=== PATIENT | female | born 1990 | race Caucasian/White ===

== ENCOUNTER → 2020-07-17 13:46 | Outpatient (CLI) | payer OTHER, SELFPAY ==
[2020-07-17 14:31] LABS: Basophils # 0.1 K/mm3 (0-0.2); Basophils % 1.3 % (0.1-2.0); Eosinophils # 0.4 K/mm3 (0.0-0.4); Eosinophils % 5.2 % (0.1-12.0); Hematocrit 42.1 % (37.0-47.0); Hemoglobin 13.3 g/dL (12.2-16.2); Lymphocytes % 29.6 % (10-50); Mean Corpuscular HGB Conc 31.5 g/dL (31.8-35.4); Mean Corpuscular Volume 101.6 fl (81-99); Mean Platelet Volume 8.9 fl (7.4-10.4); Monocytes # 0.4 K/mm3 (0.1-1.0); Monocytes % 5.2 % (1.7-9.3); Neutrophils % 58.7 % (37.0-80.0); Platelet Count 178 K/mm3 (142-424); Red Blood Count 4.15 M/mm3 (4.20-5.40); Red Cell Distribution Width 13.2 % (11.5-17.5); White Blood Count 6.8 K/mm3 (4.8-10.8)
== END ==
PROVIDERS: PCP Nurse Practitioner; Visit Provider Nurse Practitioner
DX: Z03.818 Encounter for observation for suspected exposure to other biological agents ruled out (principal)
CPT/HCPCS: 36415; 85025; U0003

== ENCOUNTER 2021-05-03 15:20 | Emergency (ER) | payer OTHER, SELFPAY ==
[2021-05-03 16:30] VITALS: BP 133/84; PULSE 89; RESP 19; TEMP 37.1; O2SAT 99; BMI 29.8
--- NOTE | 2021-05-03 17:03 | HMH.EDUTC ---
[facility] Disposition Clinical Impression: Exposure to COVID-19 virus Disposition: Home, Self-Care Condition on Discharge: Good Instructions: DI for COVID-19 (Suspected or Confirmed ), Coronavirus Disease 2019, Preventing the Spread of Coronavirus Discharge Instructions Additional Instructions: *Monitor Temp, Over the counter Motrin or Tylenol as directed/as needed Tylenol every 4 hours and Motrin every 6 hours (as long as your family doctor has told you that you can take it) for fever or pain. and straight to ER if unable to lower temp less than 101.0 after medication given *Sleep elevated *Humidifier/Vaporizer Follow up IMMEDIATELY for new or worsening symptoms or no Noticeable improvement over the next 48-72 hours. 911 for difficulty breathing or swallowing You were tested for today for COVID19 your test result should be back in the next 24-48 hours, you may call to the [facility] to see if your test results are back in the next 48 hours [phone] [facility] hours are 9am-9pm You was given a handout with instructions for Self Quarantine and Self isolation for while you wait on test results and what to do if they are positive If you are positive the Health Dept will be contacting you also Make sure to take your Vitamins Vit. C Vit D and Zinc if you can take them Referrals: Tio Gomez MD [Primary Care Provider] - As needed Forms: Work/School Release Time of Disposition: 17:05 Medical Decision Making - Chris Inquiry Pt receiving controlled substance: No Chris was queried for this patient: No Vital Signs: 05/03/21 16:30 Temperature 98.7 F Temperature Source Oral Pulse Rate [Left Brachial] 89 Respiratory Rate 19 Blood Pressure [Left Arm] 133/84 Blood Pressure Mean [Left Arm] 100 Blood Pressure Source [Left Arm] Automatic Cuff Blood Pressure Position [Left Arm] Sitting 02 Sat by Pulse Oximetry 99 Oxygen Delivery Method Room Air Orders (Tests/Meds): ORDERS Category Date Time Status Covid-19 Nasal PCR ([facility]) Routine Lab 05/03/21 16:39 Ordered [facility] HPI - General Stated complaint: covid test Time Seen by Provider: 05/03/21 17:03 Mode of Arrival: Ambulatory Source of Information: Patient Limitations: No Limitations Description of Symptoms (Recalled from Triage Doc. by RN): COVID TEST D/T EXPOSURE. DENIES SYMPTOMS HEENT Symptoms (Recalled from RN notes): No Resp Symptoms (Recalled from RN notes): No Skin Symptoms (Recalled from RN notes): No MS Symptoms (Recalled from RN notes): No Functional Status (Recalled from RN notes): WNL - History of Present Illness Provider Complaint: Patient state that she was recently exposed to COVID by another coworker States that she is not having any symptoms but her son is and so she came in to get tested - Related Data Home Medications Medication Instructions Recorded Confirmed No Known Home Medications 09/06/19 09/06/19 Allergies Allergy/AdvReac Type Severity Reaction Status Date / Time No Known Allergies Allergy Verified 09/06/19 21:27 - Worker's Comp Is this a Worker's Comp case?: No [facility] History - Hepatitis A Screen Drug use history?: No High risk sexual behaviors?: No History of sexually transmitted infection?: No Currently employed?: No Childcare worker?: No Do you have indoor plumbing?: Yes Do you have electricity?: Yes Attestation statement:: This patient has been screened for Hepatitis A risk factors. I have reviewed the patient's past medical history: Yes Medical History: Denies:: Diabetes Mellitus Type 1, Diabetes Mellitus Type 2, Internal Pacemaker Other Surgeries: No: Pacemaker - Social History Smoking Status: Current every day smoker Tobacco Type: cigarettes # Packs/Day (cigarettes): 1 Alcohol Intake: never Occupational Status: other ROS Obtained: Yes All systems reviewed & no additional complaints, Yes Systems reviewed as appropriate & no additional complaints - Constitutional Constitutional: Reports sys
[2021-05-03 17:06] VITALS: BP 133/84; PULSE 89; RESP 19; TEMP 37.1; O2SAT 99
== END 2021-05-03 17:10 | disposition home or self-care (01) ==
PROVIDERS: Emergency Provider Nurse Practitioner; PCP Family Medicine
DX: Z20.822 Contact with and (suspected) exposure to COVID-19 (principal); F17.210 Nicotine dependence, cigarettes, uncomplicated
CPT/HCPCS: 99202; G0463; U0003

== ENCOUNTER → 2021-12-09 11:48 | Outpatient (CLI) | payer OTHER, SELFPAY ==
--- NOTE | 2021-12-09 11:51 | XR_ITS ---
FINAL REPORT CLINICAL HISTORY: PAIN FINDINGS: 3 weight-bearing views of the right foot were obtained. There is no acute fracture or dislocation. The joint spaces are intact. The soft tissues are unremarkable. IMPRESSION: No acute process. Reviewed, Interpreted and Dictated by Red Garcia MD Transcribed by Salinas Antonio Authenticated by Red Garcia MD on 12/09/2021 12:57:[address] [facility]
== END ==
PROVIDERS: PCP Family Medicine; Visit Provider Podiatrist
DX: M79.671 Pain in right foot (principal); B35.9 Dermatophytosis, unspecified
CPT/HCPCS: 73630; 87070; 87077; 87102; 87205; 87206; 87220

== ENCOUNTER → 2023-02-20 10:36 | Outpatient (CLI) | payer BC, SELFPAY ==
[2023-02-21 08:20] LABS: Progesterone 30.9 ng/mL (.)
== END ==
PROVIDERS: PCP Nurse Practitioner; Visit Provider Obstetrics & Gynecology
DX: Z34.90 Encounter for supervision of normal pregnancy, unspecified, unspecified trimester (principal)
CPT/HCPCS: 36415; 84144; 84702

== ENCOUNTER → 2023-02-23 10:50 | Outpatient (CLI) | payer BC, SELFPAY ==
[2023-02-23 11:30] LABS: Basophils # 0.1 K/mm3 (0-0.2); Basophils % 0.4 % (0.1-2.0); Eosinophils # 0.1 K/mm3 (0.0-0.4); Eosinophils % 0.9 % (0.1-12.0); Hematocrit 42.6 % (37.0-47.0); Hemoglobin 13.9 g/dL (12.2-16.2); Lymphocytes % 17.5 % (10-50); Mean Corpuscular HGB Conc 32.7 g/dL (31.8-35.4); Mean Corpuscular Hemoglobin 32.2 pg (27.0-31.2); Mean Corpuscular Volume 98.4 fl (81-99); Mean Platelet Volume 8.5 fl (7.4-10.4); Monocytes # 0.4 K/mm3 (0.1-1.0); Monocytes % 3.8 % (1.7-9.3); Neutrophils # 8.6 K/mm3 (1.8-7.8); Neutrophils % 77.3 % (37.0-80.0); Platelet Count 301 K/mm3 (142-424); Red Blood Count 4.33 M/mm3 (4.20-5.40); Red Cell Distribution Width 13.5 % (11.5-17.5); White Blood Count 11.2 K/mm3 (4.8-10.8)
[2023-02-24 09:19] LABS: HIV Screen 4th Generation wRfx Non Reactive (Non Reactive)
[2023-02-24 14:22] LABS: Rapid Plasma Reagin Ab Titer Non Reactive (NonRea<1:1); Rubella Antibodies, IgG 6.24 index (Immune >0.99)
[2023-04-01 00:21] LABS: Hepatitis B Surface Antigen Negative; Hepatitis C Antibody Non Reactive
== END ==
PROVIDERS: PCP Family Medicine; Visit Provider Obstetrics & Gynecology
DX: Z34.91 Encounter for supervision of normal pregnancy, unspecified, first trimester (principal); Z3A.16 16 weeks gestation of pregnancy
CPT/HCPCS: 36415; 85025; 86593; 86703; 86762; 86850; 87086; 87340; 87380; G0432

== ENCOUNTER → 2023-03-02 12:25 | Outpatient (CLI) | payer BC, SELFPAY ==
--- NOTE | 2023-03-02 12:51 | US_ITS ---
PROCEDURE: US OB >= 14 WEEKS FETUS CLINICAL INDICATION: for dates COMPARISON: No exams were available for comparison FINDINGS: Single viable intrauterine gestation. Cephalic position. Placenta: Anteriorplacenta grade 1. There is average amount fluid. The cervix appears satisfactory. Closed and measuring 3 cm in length. Complete survey performed and was unremarkable on the submitted images as in PACS. No discrete anomalies identified on survey imaging by technologist. Active fetus. Three-vessel cord with satisfactory umbilical cord insertion. 4- chamber heart noted. Survey of brain & ventricles Unremarkable., cerebellum, Cisterna magna, thalamus, choroid plexus appear normal Face and neck survey unremarkable. Nose and lips visualized, nasion visualized Diaphragm and chest views unremarkable. Abdomen: Stomach noted and satisfactory. Bladder visualized Spine: Survey of the spine satisfactory with no anomalies identified nor imaged. Upper, thoracic, lower spine normal. Both arms and legs noted. Amniotic Fluid: Adequate. Measurements: Average ultrasound age 16weeks 6days. Gestational Age 16weeks 6days Estimated due date by ultrasound age 1108/11/2023. Estimated weight 169g BPD = 17weeks 1day OFD = 16weeks 6days HC = 16weeks 4days AC = 17weeks 1day FL = 16weeks 4days Heart Rate = 149bpm Cerebellum = 17weeks HC/AC is 1.14 CI is 0.8 FL/BPD is 0.6 FL/AC is 0.19 From her last menstrual period she is unknown. . An intrauterine fetus is present with gestational age of 16weeks 6days. heart tones are present with an FHR of 149bpm. IMPRESSION: 1. Estimated due date by Ultrasound is 08/11/2023. 2. Limited anatomical scan appears normal. 3. Fetus in the cephalic presentation with an anterior placenta. Dictated by: Jay Fuller MD 03/05/2023 18:57 Jay Fuller MD in [place] 03/05/2023 18:57
== END ==
PROVIDERS: PCP Family Medicine; Visit Provider Obstetrics & Gynecology
DX: Z3A.16 16 weeks gestation of pregnancy; Z34.92 Encounter for supervision of normal pregnancy, unspecified, second trimester
CPT/HCPCS: 76805

== ENCOUNTER → 2023-03-30 14:43 | Outpatient (CLI) | payer BC, SELFPAY ==
--- NOTE | 2023-03-30 14:43 | US_ITS ---
PROCEDURE: US OB /MATERNAL DETAIL CLINICAL INDICATION: 20 week anatomy scan COMPARISON: No exams were available for comparison FINDINGS: From her established due date she is 20 weeks 6 days. Single viable intrauterine gestation. Breech position. Placenta: Anteriorplacenta grade 1 . There are several small placental lakes. There is average amount fluid. The cervix appears satisfactory. Closed and measuring 4.2 cm in length. Complete survey performed and was unremarkable on the submitted images as in PACS. No discrete anomalies identified on survey imaging by technologist. Active fetus. Three-vessel cord with satisfactory umbilical cord insertion. 4- chamber heart noted. LVOT, RVOT, Survey of brain & ventricles Unremarkable. Cerebellum, thalamus, cisterna magna, choroid plexus appear normal. There is a 6 millimeter choroid plexus cyst. Face and neck survey unremarkable. Lips and nose appeared normal. Profile and nasion appear normal Diaphragm and chest views unremarkable. Abdomen: Both kidneys noted and unremarkable. Stomach noted and satisfactory. Bladder appears normal. Spine: Survey of the spine satisfactory with no anomalies identified nor imaged. upper, thoracic, lower spine appear normal. Both arms and legs noted. Amniotic Fluid: Adequate. Measurements: Average ultrasound age 20weeks 4days. Estimated due date by ultrasound age 1108/13/2023. Estimated weight 361g BPD = 21weeks OFD = 20weeks 3days HC = 19weeks 6days AC = 20weeks 4days FL = 20weeks 6days Growth Percentile= 33% Heart Rate = 139bpm Cerebellum = 20weeks 2days Humerus = 20weeks 5days HC/AC is 1.13 CI is 0.82 FL/BPD is 0.7 FL/AC is 0.22 IMPRESSION: 1. Viable fetus in the breech presentation with an anterior placenta grade 1. 2. There are several small placental lakes. 3. Complete anatomical scan appears normal. 4. There is a 6 millimeter choroid plexus cyst. No other soft markers. Dictated by: Jay Fuller MD 04/01/2023 14:54 Jay Fuller MD in [place] 04/01/2023 14:54
== END ==
PROVIDERS: PCP Family Medicine; Visit Provider Obstetrics & Gynecology
DX: Z34.92 Encounter for supervision of normal pregnancy, unspecified, second trimester (principal); Z3A.20 20 weeks gestation of pregnancy
CPT/HCPCS: 76811

== ENCOUNTER 2023-05-16 08:02 | Outpatient (CLI) | payer BC, SELFPAY ==
[2023-05-16 08:49] LABS: Basophils # 0.1 K/mm3 (0-0.2); Basophils % 0.4 % (0.1-2.0); Eosinophils # 0.2 K/mm3 (0.0-0.4); Eosinophils % 1.5 % (0.1-12.0); Hematocrit 38.3 % (37.0-47.0); Hemoglobin 12.7 g/dL (12.2-16.2); Lymphocytes % 14.6 % (10-50); Mean Corpuscular HGB Conc 33.2 g/dL (31.8-35.4); Mean Corpuscular Hemoglobin 34.1 pg (27.0-31.2); Mean Corpuscular Volume 102.7 fl (81-99); Mean Platelet Volume 9.2 fl (7.4-10.4); Monocytes # 0.6 K/mm3 (0.1-1.0); Monocytes % 4.3 % (1.7-9.3); Neutrophils % 79.2 % (37.0-80.0); Platelet Count 289 K/mm3 (142-424); Red Blood Count 3.73 M/mm3 (4.20-5.40); Red Cell Distribution Width 13.1 % (11.5-17.5); White Blood Count 13.8 K/mm3 (4.8-10.8)
[2023-05-16 09:00] LABS: Glucose,Fasting 85 mg/dl (74-100)
[2023-05-16 10:22] LABS: Glucose 1 Hour 123 mg/dL (74-100)
[2023-05-16 10:40] VITALS: BP 103/64; PULSE 102; RESP 18; O2SAT 99
== END 2023-05-16 10:45 | disposition home or self-care (01) ==
LOC: LAB 08:03
PROVIDERS: PCP Family Medicine; Visit Provider Obstetrics & Gynecology
DX: O26.893 Other specified pregnancy related conditions, third trimester; Z3A.28 28 weeks gestation of pregnancy; Z67.91 Unspecified blood type, Rh negative
CPT/HCPCS: 36415; 82951; 85025; 96372; J2790

== ENCOUNTER 2023-06-06 09:02 | Outpatient (CLI) | payer BC, SELFPAY ==
[2023-06-06 09:13] VITALS: BMI 19.4
[2023-06-06 09:36] LABS: Microscopic, Urine URINE MICROSCOPIC (MICROSCOPIC)
[2023-06-06 09:41] LABS: Appearance,Urine CLEAR (Clear); Bilirubin,Urine Negative (Negative); Blood, Urine Negative (Negative); Color,Urine YELLOW (Yellow); Glucose,Urine (UA) Negative (Negative); Ketones,Urine Negative (Negative); Leukocyte Esterase,Urine Negative (Negative); Nitrate,Urine Negative (Negative); Protein,Urine Negative (Negative); Urobilinogen,Urine 0.2 EU/dl (0.2)
[2023-06-06 09:52] VITALS: RESP 19; TEMP 36.6; O2SAT 100; BMI 19.4
[2023-06-06 09:54] LABS: RBC,Urine Occasional #/hpf (0-3); WBC,Urine Occasional #/hpf (0-3)
[2023-06-06 09:55] LABS: Bacteria,Urine Trace /lpf; Yeast,Urine 1+ /lpf
[2023-06-06 09:56] LABS: Barbiturates Screen,Urine Negative ng/ml (<200)
[2023-06-06 09:57] LABS: Benzodiazepines Screen,Urine Negative ng/ml (<200)
[2023-06-06 09:58] LABS: Amphetamine/Metha Screen,Urine Negative ng/ml (<1000); Methadone Screen,Urine Negative ng/ml (<300)
[2023-06-06 09:59] LABS: Cannabinoid Screen,Urine Negative ng/ml (<50); Cocaine Screen,Urine Negative ng/ml (<300)
[2023-06-06 10:00] LABS: Opiate Screen,Urine Negative ng/ml (<300)
[2023-06-06 10:01] LABS: Phencyclidine Screen,Urine Negative ng/ml (<25)
== END 2023-06-06 10:56 | disposition home or self-care (01) ==
LOC: OBOUT 09:04 → OB 09:05
PROVIDERS: PCP Nurse Practitioner; Visit Provider Obstetrics & Gynecology
DX: O26.893 Other specified pregnancy related conditions, third trimester (principal); Z3A.30 30 weeks gestation of pregnancy
CPT/HCPCS: 80305; 81001

== ENCOUNTER 2023-06-13 08:50 | Outpatient (CLI) | payer BC, SELFPAY ==
[2023-06-13 09:06] VITALS: BP 112/77; PULSE 107; RESP 20; TEMP 36.6; O2SAT 98; BMI 19.9
== END 2023-06-13 09:33 | disposition home or self-care (01) ==
LOC: OBOUT 08:51 → OB 08:53
PROVIDERS: PCP Family Medicine; Visit Provider Obstetrics & Gynecology
DX: O26.893 Other specified pregnancy related conditions, third trimester (principal); Z3A.31 31 weeks gestation of pregnancy
CPT/HCPCS: 59025; G0463

== ENCOUNTER 2023-06-26 12:27 | Outpatient (CLI) | payer BC, SELFPAY ==
[2023-06-26 13:14] VITALS: BP 118/72; PULSE 82; RESP 18; TEMP 36.7; O2SAT 99
== END 2023-06-26 13:35 | disposition home or self-care (01) ==
LOC: OBOUT 12:30 → OB 12:31
PROVIDERS: PCP Family Medicine; Visit Provider Nurse Practitioner Obstetrics & Gynecology
DX: O26.893 Other specified pregnancy related conditions, third trimester (principal); Z3A.33 33 weeks gestation of pregnancy
CPT/HCPCS: G0463

== ENCOUNTER 2023-07-03 17:15 | Outpatient (CLI) | payer BC, SELFPAY ==
[2023-07-03 17:34] VITALS: BMI 19.8
[2023-07-03 17:36] VITALS: BMI 19.8
[2023-07-03 17:40] LABS: Microscopic, Urine URINE MICROSCOPIC (MICROSCOPIC)
[2023-07-03 17:44] LABS: Appearance,Urine CLEAR (Clear); Bilirubin,Urine Negative (Negative); Blood, Urine Negative (Negative); Color,Urine YELLOW (Yellow); Glucose,Urine (UA) Negative (Negative); Ketones,Urine 1+ (Negative); Leukocyte Esterase,Urine Negative (Negative); Nitrate,Urine Negative (Negative); Protein,Urine TRACE (Negative); Specific Gravity, Urine >= 1.030 (1.005-1.030); Urobilinogen,Urine 0.2 EU/dl (0.2)
[2023-07-03 17:59] LABS: Amphetamine/Metha Screen,Urine Negative ng/ml (<1000); Barbiturates Screen,Urine Negative ng/ml (<200)
[2023-07-03 18:00] LABS: Cannabinoid Screen,Urine Negative ng/ml (<50)
[2023-07-03 18:01] LABS: Benzodiazepines Screen,Urine Negative ng/ml (<200); Methadone Screen,Urine Negative ng/ml (<300)
[2023-07-03 18:02] LABS: Cocaine Screen,Urine Negative ng/ml (<300)
[2023-07-03 18:03] LABS: Opiate Screen,Urine Negative ng/ml (<300); Phencyclidine Screen,Urine Negative ng/ml (<25)
[2023-07-03 18:21] LABS: Bacteria,Urine Trace /lpf; RBC,Urine Occasional #/hpf (0-3); WBC,Urine Occasional #/hpf (0-3)
== END 2023-07-03 18:14 | disposition home or self-care (01) ==
LOC: OBOUT 17:16 → OB 17:17
PROVIDERS: PCP Family Medicine; Visit Provider Obstetrics & Gynecology
DX: O26.893 Other specified pregnancy related conditions, third trimester (principal); Z3A.34 34 weeks gestation of pregnancy
CPT/HCPCS: 59025; 80305; 81001; G0463

== ENCOUNTER 2023-07-06 08:29 | Outpatient (CLI) | payer BC, SELFPAY ==
[2023-07-06 08:53] LABS: Microscopic, Urine URINE MICROSCOPIC (MICROSCOPIC)
[2023-07-06 08:56] LABS: Appearance,Urine CLEAR (Clear); Bilirubin,Urine Negative (Negative); Blood, Urine Negative (Negative); Color,Urine YELLOW (Yellow); Glucose,Urine (UA) Negative (Negative); Ketones,Urine Negative (Negative); Leukocyte Esterase,Urine Negative (Negative); Nitrate,Urine Negative (Negative); PH,Urine 6.5 (5.0-8.5); Protein,Urine Negative (Negative); Urobilinogen,Urine 0.2 EU/dl (0.2)
[2023-07-06 09:06] LABS: Barbiturates Screen,Urine Negative ng/ml (<200)
[2023-07-06 09:07] LABS: Cannabinoid Screen,Urine Negative ng/ml (<50)
[2023-07-06 09:08] VITALS: BP 111/84; PULSE 95; RESP 16; TEMP 36.9; O2SAT 98
[2023-07-06 09:08] LABS: Benzodiazepines Screen,Urine Negative ng/ml (<200); Methadone Screen,Urine Negative ng/ml (<300)
[2023-07-06 09:09] LABS: Cocaine Screen,Urine Negative ng/ml (<300)
[2023-07-06 09:10] LABS: Phencyclidine Screen,Urine Negative ng/ml (<25)
[2023-07-06 09:11] LABS: Opiate Screen,Urine Negative ng/ml (<300)
[2023-07-06 09:15] LABS: Amphetamine/Metha Screen,Urine Negative ng/ml (<1000)
[2023-07-06 12:02] LABS: Fetal Fibronectin (Rapid) Negative (Negative)
== END 2023-07-06 12:43 | disposition home or self-care (01) ==
LOC: OBOUT 08:30 → OB 08:31
PROVIDERS: PCP Family Medicine; Visit Provider Obstetrics & Gynecology
DX: O36.8130 Decreased fetal movements, third trimester, not applicable or unspecified (principal); Z3A.34 34 weeks gestation of pregnancy
CPT/HCPCS: 59025; 80305; 81001; 82731; 96365; G0463

== ENCOUNTER 2023-07-10 17:36 | Outpatient (CLI) | payer BC, SELFPAY ==
[2023-07-10 17:57] VITALS: BMI 20.2
[2023-07-10 17:58] VITALS: BMI 20.2
[2023-07-10 18:02] LABS: Microscopic, Urine URINE MICROSCOPIC (MICROSCOPIC)
[2023-07-10 18:14] LABS: Barbiturates Screen,Urine Negative ng/ml (<200)
[2023-07-10 18:15] LABS: Benzodiazepines Screen,Urine Negative ng/ml (<200)
[2023-07-10 18:16] LABS: Amphetamine/Metha Screen,Urine Negative ng/ml (<1000)
[2023-07-10 18:18] LABS: Methadone Screen,Urine Negative ng/ml (<300); Opiate Screen,Urine Negative ng/ml (<300)
[2023-07-10 18:19] LABS: Phencyclidine Screen,Urine Negative ng/ml (<25)
[2023-07-10 18:21] LABS: Cannabinoid Screen,Urine Negative ng/ml (<50)
[2023-07-10 18:22] LABS: Appearance,Urine CLEAR (Clear); Bilirubin,Urine Negative (Negative); Blood, Urine Negative (Negative); Cocaine Screen,Urine Negative ng/ml (<300); Color,Urine YELLOW (Yellow); Glucose,Urine (UA) Negative (Negative); Ketones,Urine TRACE (Negative); Leukocyte Esterase,Urine Negative (Negative); Nitrate,Urine Negative (Negative); Protein,Urine Negative (Negative); Specific Gravity, Urine >= 1.030 (1.005-1.030)
[2023-07-10 18:32] LABS: Squamous Epithelial Cell,Urine Occasional #/hpf (0-5); WBC,Urine Occasional #/hpf (0-3)
== END 2023-07-10 18:55 | disposition home or self-care (01) ==
LOC: OBOUT 17:37 → OB 17:39
PROVIDERS: PCP Family Medicine; Visit Provider Nurse Practitioner Obstetrics & Gynecology
DX: O26.893 Other specified pregnancy related conditions, third trimester (principal); Z3A.35 35 weeks gestation of pregnancy
CPT/HCPCS: 59025; 80305; 81001

== ENCOUNTER 2023-07-14 16:39 | Outpatient (CLI) | payer BC, SELFPAY ==
[2023-07-14 17:30] VITALS: BP 118/76; PULSE 111; RESP 16; TEMP 36.6; O2SAT 99; BMI 20.4
[2023-07-14 17:38] LABS: Microscopic, Urine URINE MICROSCOPIC (MICROSCOPIC)
[2023-07-14 17:53] LABS: Appearance,Urine CLEAR (Clear); Bilirubin,Urine Negative (Negative); Blood, Urine Negative (Negative); Color,Urine YELLOW (Yellow); Glucose,Urine (UA) Negative (Negative); Ketones,Urine Negative (Negative); Leukocyte Esterase,Urine Negative (Negative); Nitrate,Urine Negative (Negative); Protein,Urine TRACE (Negative); Specific Gravity, Urine >= 1.030 (1.005-1.030)
[2023-07-14 18:22] LABS: Bacteria,Urine Trace /lpf
== END 2023-07-14 18:26 | disposition home or self-care (01) ==
LOC: OBOUT 16:40 → OB 16:41
PROVIDERS: PCP Family Medicine; Visit Provider Obstetrics & Gynecology
DX: O47.03 False labor before 37 completed weeks of gestation, third trimester (principal); Z3A.36 36 weeks gestation of pregnancy
CPT/HCPCS: 59025; 81001; G0463

== ENCOUNTER 2023-07-17 09:07 | Outpatient (CLI) | payer BC, SELFPAY ==
[2023-07-17 09:39] VITALS: BP 106/75; PULSE 93; RESP 18; TEMP 36.8
== END 2023-07-17 09:35 | disposition home or self-care (01) ==
LOC: OBOUT 09:09 → OB 09:13
PROVIDERS: PCP Family Medicine; Visit Provider Obstetrics & Gynecology
DX: O47.03 False labor before 37 completed weeks of gestation, third trimester (principal); Z3A.36 36 weeks gestation of pregnancy; R10.2 Pelvic and perineal pain
CPT/HCPCS: 96372

== ENCOUNTER 2023-07-18 08:35 | Outpatient (CLI) | payer BC, SELFPAY ==
[2023-07-18 08:41] VITALS: BMI 20.3
== END 2023-07-18 09:15 | disposition home or self-care (01) ==
LOC: OBOUT 08:36 → OB 08:37
PROVIDERS: PCP Family Medicine; Visit Provider Obstetrics & Gynecology
DX: O26.893 Other specified pregnancy related conditions, third trimester (principal); Z3A.36 36 weeks gestation of pregnancy
CPT/HCPCS: 96372; G0463

== ENCOUNTER 2023-07-23 21:30 | Emergency (ER) | payer BC, SELFPAY ==
--- NOTE | 2023-07-23 21:31 | HMH.EDGENADL ---
Discharge Plan Prescriptions Prescriptions: No Action Classic 28 mg iron- 800 mcg tablet 1 tab PO DAILY Referrals Follow up/Referrals: Es Lazcano MD [Primary Care Provider] - See instructions Discharge ED Provider: Juan Mendosa Adult HPI General Stated complaint: back pain Time Seen by Provider: 07/23/23 21:31 Related Data Home Medications Medication Instructions Recorded Confirmed vits no.126-ferrous fum 1 tab PO DAILY 02/23/23 07/17/23 28 mg iron-folic acid 800 mcg tablet (Classic ) Allergies Allergy/AdvReac Type Severity Reaction Status Date / Time No Known Allergies Allergy Verified 07/17/23 08:20 [facility] Disclaimer: The information contained in this section may have been updated after the patient was seen, as this information can be updated by other users. Medical History History of delivery, currently Nausea and vomiting in Request for sterilization Rh negative status during Tobacco abuse Tobacco use affecting , antepartum Surgical History Hx of section Family History Other No significant family history Social History Smoking Status: Current every day smoker tobacco type: cigarettes packs per day: 1 second hand exposure: No alcohol intake: never substance use type: denies use current occupational status: unemployed Travel in the last 8 weeks: None ROS Obtained: Yes Systems reviewed as appropriate & no additional complaints except as documented As per HPI Physical Exam General General appearance: alert and in no apparent distress Head Head exam: atraumatic and normocephalic Eye Eye exam: Present normal appearance Neck Neck exam: Present normal inspection Chest Chest inspection: Present normal inspection and symmetric chest wall rise Respiratory Respiratory exam: Present normal lung sounds bilaterally; Absent respiratory distress Cardiovascular Cardiovascular exam: Present regular rate and normal rhythm Abdominal Exam Abdominal exam: Present soft Neurological Exam Neurological exam: Present alert and oriented X3 Psychiatric Psychiatric exam: Present normal affect and normal mood Skin Skin exam: Present warm and dry Medical Decision Making Medical Records Medical records reviewed: Yes I reviewed the patient's medical records. Chris Inquiry Pt receiving controlled substance: No Medical Decision Narrative: Patient with history and exam per above presenting for evaluation of Diagnoses considered include ED workup and treatment included: Labs were independently interpreted by me, significant for Imaging was independently visualized and interpreted by me, significant for Symptoms at this time are thought to be most consistent with I discussed my clinical impression with patient and answered all questions. At this time, given reassuring workup and exam, I discussed that I have a low index of suspicion for any acute pathology necessitating inpatient management. Specific return precautions were given, with understanding and agreement. Patient will follow up with primary care provider as needed. I prescribed the following medications upon discharge: Critical Care Critical Care Time Critical Care Time: No
[2023-07-23 21:44] VITALS: BP 0/0; PULSE 0; RESP 0; TEMP -17.7; TEMP 0; O2SAT 0
--- NOTE | 2023-07-23 23:20 | HMH.EDGENADL ---
Discharge Plan Disposition Patient Disposition: Left Without Being Seen Clinical Impressions Clinical Impression: Patient left without being seen Discharge ED Provider: Juan Mendosa Adult HPI General Stated complaint: back pain Time Seen by Provider: 07/23/23 21:31 History of Present Illness HPI narrative: Patient left without being seen. I was therefore unable to assess patient and form a clinical impression. Please note that first provider time was documented solely for the purposes of chart completion. Electronic medical record will not allow me to file a note for the purposes of documenting this encounter in the emergency department without first provider time but again, I did not evaluate the patient. Related Data Home Medications Medication Instructions Recorded Confirmed vits no.126-ferrous fum 1 tab PO DAILY 02/23/23 07/17/23 28 mg iron-folic acid 800 mcg tablet (Classic ) Allergies Allergy/AdvReac Type Severity Reaction Status Date / Time No Known Allergies Allergy Verified 07/17/23 08:20 [facility] Disclaimer: The information contained in this section may have been updated after the patient was seen, as this information can be updated by other users. Medical History History of delivery, currently Nausea and vomiting in Request for sterilization Rh negative status during Tobacco abuse Tobacco use affecting , antepartum Surgical History Hx of section Family History Other No significant family history Social History Smoking Status: Current every day smoker tobacco type: cigarettes packs per day: 1 second hand exposure: No alcohol intake: never substance use type: denies use current occupational status: unemployed Travel in the last 8 weeks: None ROS Obtained: Yes other (Unobtainable) Physical Exam General General appearance: other (Unobtainable) Head Head exam: other (Unobtainable) ENT ENT exam: Present other (Unobtainable) Neck Neck exam: Present other (Unobtainable) Chest Chest inspection: Present other (Unobtainable) Respiratory Respiratory exam: Present other (Unobtainable) Cardiovascular Cardiovascular exam: Present other (Unobtainable) Abdominal Exam Abdominal exam: Present other (Unobtainable) Extremities Exam Extremities exam: Present other (Unobtainable) Back Exam Back exam: Present other (Unobtainable) Neurological Exam Neurological exam: Present other (Unobtainable) Psychiatric Psychiatric exam: Present other (Unobtainable) Medical Decision Making Chris Inquiry Pt receiving controlled substance: No Vital Signs: 07/23/23 21:44 Temperature 0 F L Pulse Rate 0 L Respiratory Rate 0 L Blood Pressure 0/0 L Medical Decision Narrative: Patient left without being seen. I was therefore unable to assess patient and form a clinical impression.Please note that first provider time was documented solely for the purposes of chart completion.Electronic medical record will not allow me to file a note for the purposes of documenting this encounter in the emergency department without first provider time but again I did not see patient. Critical Care Critical Care Time Critical Care Time: No
== END 2023-07-23 21:46 | disposition left against medical advice (07) ==
PROVIDERS: Emergency Provider Emergency Medicine; PCP Family Medicine
DX: M54.9 Dorsalgia, unspecified (principal)
CPT/HCPCS: 99211

== ENCOUNTER 2023-07-23 21:34 | Outpatient (CLI) | payer BC, SELFPAY ==
[2023-07-23 21:42] VITALS: BMI 20.3
[2023-07-23 22:09] VITALS: BP 119/75; PULSE 101; RESP 17; O2SAT 98; BMI 20.3
[2023-07-23 22:25] LABS: Microscopic, Urine URINE MICROSCOPIC (MICROSCOPIC)
[2023-07-23 22:28] LABS: Appearance,Urine SL CLOUDY (Clear); Bilirubin,Urine Negative (Negative); Blood, Urine Negative (Negative); Color,Urine YELLOW (Yellow); Glucose,Urine (UA) 1+ (Negative); Ketones,Urine TRACE (Negative); Leukocyte Esterase,Urine Negative (Negative); Nitrate,Urine Negative (Negative); Protein,Urine Negative (Negative); Specific Gravity, Urine 1.025 (1.005-1.030); Urobilinogen,Urine 0.2 EU/dl (0.2)
[2023-07-23 22:38] LABS: Bacteria,Urine 1+ /lpf; Mucus,Urine Trace /lpf
[2023-07-23 22:40] LABS: Barbiturates Screen,Urine Negative ng/ml (<200)
[2023-07-23 22:41] LABS: Amphetamine/Metha Screen,Urine Negative ng/ml (<1000); Benzodiazepines Screen,Urine Negative ng/ml (<200)
[2023-07-23 22:42] LABS: Cannabinoid Screen,Urine Negative ng/ml (<50)
[2023-07-23 22:43] LABS: Cocaine Screen,Urine Negative ng/ml (<300); Methadone Screen,Urine Negative ng/ml (<300)
[2023-07-23 22:44] LABS: Opiate Screen,Urine Negative ng/ml (<300)
[2023-07-23 22:45] LABS: Phencyclidine Screen,Urine Negative ng/ml (<25)
== END 2023-07-23 22:40 | disposition home or self-care (01) ==
LOC: OBOUT 21:36 → OB 21:37
PROVIDERS: PCP Family Medicine; Visit Provider Obstetrics & Gynecology
DX: Z34.93 Encounter for supervision of normal pregnancy, unspecified, third trimester (principal)
CPT/HCPCS: 59025; 80305; 81001; G0463

== ENCOUNTER 2023-07-25 04:53 | Inpatient (IN) | payer BC, SELFPAY ==
[2023-07-25] VITALS (7 sets, daily range): BP systolic 109–115; BP diastolic 65–73; PULSE 70–99; RESP 16–19; TEMP 36.4–36.8; O2SAT 97–99; BMI 19.8
[2023-07-25 05:44] LABS: Microscopic, Urine URINE MICROSCOPIC (MICROSCOPIC)
[2023-07-25 05:47] LABS: Basophils # 0.1 K/mm3 (0-0.2); Basophils % 0.5 % (0.1-2.0); Eosinophils # 0.3 K/mm3 (0.0-0.4); Eosinophils % 2.3 % (0.1-12.0); Hematocrit 33.5 % (37.0-47.0); Lymphocytes % 20.8 % (10-50); Mean Corpuscular HGB Conc 35.8 g/dL (31.8-35.4); Mean Corpuscular Hemoglobin 35.4 pg (27.0-31.2); Mean Corpuscular Volume 99.1 fl (81-99); Mean Platelet Volume 9.4 fl (7.4-10.4); Monocytes # 0.8 K/mm3 (0.1-1.0); Monocytes % 5.2 % (1.7-9.3); Neutrophils # 10.4 K/mm3 (1.8-7.8); Neutrophils % 71.3 % (37.0-80.0); Platelet Count 353 K/mm3 (142-424); Red Blood Count 3.38 M/mm3 (4.20-5.40); Red Cell Distribution Width 12.7 % (11.5-17.5); White Blood Count 14.5 K/mm3 (4.8-10.8)
[2023-07-25 05:49] LABS: Appearance,Urine CLEAR (Clear); Bilirubin,Urine Negative (Negative); Blood, Urine Negative (Negative); Color,Urine YELLOW (Yellow); Glucose,Urine (UA) Negative (Negative); Ketones,Urine Negative (Negative); Leukocyte Esterase,Urine 1+ (Negative); Nitrate,Urine Negative (Negative); Protein,Urine Negative (Negative); Urobilinogen,Urine 0.2 EU/dl (0.2)
[2023-07-25 05:59] LABS: Alanine Aminotransferase 21 U/L (12-78); Albumin Level 3.7 g/dl (3.5-5.0); Albumin/Globulin Ratio 1.3 (1.1-1.8); Alkaline Phosphatase 151 U/L (38-126); Anion Gap 12.8 mEq/L (5-15); Aspartate Amino Transferase 29 U/L (14-36); Bilirubin,Total 0.5 mg/dl (0.2-1.3); Blood Urea Nitrogen 11 mg/dl (7-17); Calcium 8.6 mg/dl (8.4-10.2); Carbon Dioxide 21 mmol/L (22.0-30.0); Chloride 105 mmol/L (98-107); Creatinine Clearance Estimated 150 mL/min (50-200); Estimated Glomerular Filt Rate 143 ml/min (>60); GFR (African American) 173 ML/MIN (>60); Globulin 2.9 g/dL (1.3-3.2); Glucose 90 mg/dl (74-100); Potassium 3.8 mmoL/L (3.5-5.1); Sodium 135 mmol/L (136-145); Total Protein,Serum 6.6 g/dl (6.3-8.2)
[2023-07-25 06:17] LABS: Barbiturates Screen,Urine Negative ng/ml (<200)
[2023-07-25 06:18] LABS: Amphetamine/Metha Screen,Urine Negative ng/ml (<1000); Benzodiazepines Screen,Urine Negative ng/ml (<200)
[2023-07-25 06:19] LABS: Cocaine Screen,Urine Negative ng/ml (<300)
[2023-07-25 06:20] LABS: Cannabinoid Screen,Urine Negative ng/ml (<50); Methadone Screen,Urine Negative ng/ml (<300)
[2023-07-25 06:21] LABS: Opiate Screen,Urine Negative ng/ml (<300); Phencyclidine Screen,Urine Negative ng/ml (<25)
[2023-07-25 06:25] LABS: Bacteria,Urine Trace /lpf
--- NOTE | 2023-07-25 08:47 | P.PNANES_ITS ---
[facility] Disclaimer: The information contained in this section may have been updated after the patient was seen, as this information can be updated by other users. Medical History History of delivery, currently Nausea and vomiting in Onset (spontaneous) of labor after 37 completed weeks of gestation but before 39 completed weeks gestation, with delivery by (planned) section Request for sterilization Rh negative status during Tobacco abuse Tobacco use affecting , antepartum Surgical History Hx of section Family History Other No significant family history Social History (Updated 07/25/23 @ 05:50 by Diana Chakraborty RN) Smoking Status: Current every day smoker tobacco type: cigarettes packs per day: 1 second hand exposure: No alcohol intake: never substance use type: denies use current occupational status: unemployed Travel in the last 8 weeks: None household members: spouse and children do you feel safe at home: Yes victim of physical abuse: No victim of emotional abuse: No victim of sexual abuse: No would you like helpful sources: No [facility] Anesthesia Checklist Patient Identification Patient Identification: Arm Band Structural Data Admitted From: Home Planned Operative Procedure/s: Repeat C/S, Bilateral Salpingectomy Consent for Planned Operative Procedure(s) Verified: Yes Verified Documents: Surgical Consent and History and Physical NPO Status Verified Time NPO: 00:00 Additional verifications Anesthesia Reactions: No Airway Assessment Mallampati Score:: Class I C-Spine Mobility Assessed: Yes TMJ Mobility Assessed: Yes Dentition: Good Dentition Neurological Assessment Level of Consciousness: Awake and Alert Anesthesia Plan Anesthesia Risk discussed: Yes Anesthesia Plan: Verified ASA Class: II Anesthesia Type: Spinal (with Bilateral TAP Block)
--- NOTE | 2023-07-25 08:48 | P.PNANES_ITS ---
[facility] Anesthesia Record Part I Anesthesia Record I Intake, IV Amount: 1,000 Hydration: Adequate Estimated blood loss (mL): 400 Urine output (mL): 300 Blood Products used (#): none Blood Pressure: 115/65 SaO2: 98 Pulse Rate: 79 Airway Patency: Patent Respiratory Rate: 16 Temperature: 97.5 F Patient is:: Drowsy and Stable Stable to PACU at:: 08:35
--- NOTE | 2023-07-25 08:54 | EXP.OB.APHP ---
OB - H&P: HPI Antepartum History of Present Illness Chief complaint: Repeat , desires permanent sterilization History of present illness: Mrs Myriam Ulrich is a 33 yo at 37w4d who presents to [facility] for scheduled repeat with bilateral salpingectomy. Repeat scheduled at 37w4d for onset of labor with history of prior . She complains of sharp pelvic pains, pelvic pressure and contractions. She reports and enormous amount of pressure and pain in her vagina. Upon exam baby's head was +1 station. She has had contractions for several weeks. She received Celestone x 2 doses at 36 weeks. History of delivery at 36 weeks x 2. Ultrasound with PDC 07/20/23 demonstrated EFW 21 %ile with AC at 9 %ile. History of Present Criteria for establishing EDC:: based on 2nd trimester US only care: good care Ultrasounds: normal mid trimester US Obstetrical complications: previous Labs Blood type: O (-) negative Rubella: immune RPR/VDRL: nonreactive HBsAG: negative PFSH [facility] Disclaimer: The information contained in this section may have been updated after the patient was seen, as this information can be updated by other users. Medical History History of delivery, currently Nausea and vomiting in Onset (spontaneous) of labor after 37 completed weeks of gestation but before 39 completed weeks gestation, with delivery by (planned) section Request for sterilization Rh negative status during Tobacco abuse Tobacco use affecting , antepartum Surgical History Hx of section Family History Other No significant family history Social History Smoking Status: Current every day smoker tobacco type: cigarettes packs per day: 1 second hand exposure: No alcohol intake: never substance use type: denies use current occupational status: unemployed Travel in the last 8 weeks: None household members: spouse and children do you feel safe at home: Yes victim of physical abuse: No victim of emotional abuse: No victim of sexual abuse: No would you like helpful sources: No Review of Systems Review of Systems Review of systems:: pertinent systems reviewed and negative unless documented below *Genitourinary Genitourinary: Reports pelvic pain Comments: + contractions Meds Home Medications and Allergies Home Medications Medication Instructions Recorded Confirmed Type vits no.126-ferrous fum 1 tab PO DAILY 02/23/23 07/25/23 History 28 mg iron-folic acid 800 mcg tablet (Classic ) New Prescriptions to Start Prescriptions: Allergies Allergy/AdvReac Type Severity Reaction Status Date / Time No Known Allergies Allergy Verified 07/24/23 11:14 OB - H&P: Exam Physical Exam Vital signs: Temp Pulse Resp BP Pulse Ox O2 Del Method 97.5 F L 79 16 115/65 98 Room Air 07/25/23 08:48 07/25/23 08:48 07/25/23 08:48 07/25/23 08:48 07/25/23 05:37 07/25/23 05:37 Constitutional no acute distress and cooperative Routine HEENT Exam Head: Present normocephalic and atraumatic Eye: Absent conjunctivae pink ENT: Present mucous membranes moist Routine Neck Exam Present full ROM Routine Respiratory Exam Present CTA bilaterally and normal respiratory effort Routine Cardiovascular Exam Present RRR Routine Abdominal Exam Present soft (Gravid); Absent tenderness or distended Routine Rectal Exam Patient deferred: visual exam Routine Exam External: Present normal urethra appearance; Absent erythema, tenderness, lesions, lacerations or vulvar erythema Routine Extremities Exam Present full ROM; Absent edema or calf tenderness Routine Neur
--- NOTE | 2023-07-25 09:03 | EXP.OP.NOTE ---
Date of procedure: 07/25/23 Pre-op Diagnosis:: 1. Onset of labor with history of prior 2. Hx of x 1 3. SGA baby 4. Maternal tobacco use in 5. Requests permanent sterilization Post-op Diagnosis:: 1. Onset of labor with history of prior 2. Hx of x 1 3. SGA baby 4. Maternal tobacco use in 5. Requests permanent sterilization Procedure performed:: Repeat low transvers section, bilateral salpingectomy Surgeon:: Aura León DO Product/Industry Consultant(s):: Jay Fuller MD WORKFORCE MANAGEMENT ANALYST:: Allen Keller Anesthesia: spinal Estimated blood loss (mL): 400 Clinical Note:: Mrs Myriam Ulrich is a 33 yo at 37w4d who presents to [facility] for scheduled repeat with bilateral salpingectomy. Repeat scheduled at 37w4d for onset of labor with history of prior . She complains of sharp pelvic pains, pelvic pressure and contractions. She reports and enormous amount of pressure and pain in her vagina. Upon exam baby's head was +1 station. She has had contractions for several weeks. She received Celestone x 2 doses at 36 weeks. History of delivery at 36 weeks x 2. Ultrasound with PDC 07/20/23 demonstrated EFW 21 %ile with AC at 9 %ile. Operative findings:: 1. Live male baby, Patel, weighing 6 lb 0z, AGPARs 9, 9 2. Grossly normal appearing uterus, bilateral fallopian tubes and ovaries Operative note:: The risks, benefits and alternatives of the procedure were reviewed with the patient. Informed consent was obtained. Patient was taken to the operating room where spinal anesthesia was placed. The patient received 1 grams of Ancef preoperatively. Patient was placed in dorsal supine position with a leftward tilt. SCDs in place. Arcos catheter was placed and was draining clear urine prior to the start of the procedure. heart tones were obtained. Patient was then prepped and draped in normal sterile fashion. Allis clamp test was performed to ensure adequate anesthesia. A Pfannenstiel skin incision was made 2 cm above pubic symphysis along prior Pfannenstiel scar. This was carried through to underlying layer of fascia. Fascia was incised in midline, extended laterally with Marrero scissors. Superior aspect of fascial incision was grasped with two Alvaro clamps, elevated up, and rectus muscle dissected off bluntly and sharply with Marrero scissors. Inferior aspect of fascial incision was grasped with two Alvaro clamps, elevated up, and rectus muscle dissected off bluntly and sharply with Marrero scissors.The retcus muscle was then in the midline and the peritoneum was entered bluntly with a digit. Peritoneal incision was then extended superiorly and inferiorly with good visualization of the bladder. Jason retractor was inserted. The lower uterine segment was incised in a transverse fashion. Clear amniotic fluid was noted. Head was delivered without difficulty. Remainder of body was delivered without difficulty. Mouth and nares were bulb suctioned. Spontaneous cry was noted. Delayed cord clamping was performed for 60 seconds. The umbilical cord was clamped and cut. The infant was handed to awaiting pediatric staff in stable condition. Dr. Lazcano was present. Apgars were 9(1 min), 9(5 min). Cord blood was obtained. Gentle traction on the umbilical cord and uterine fundal massage delivered the placenta. Placenta was intact. Placental calcifications noted. Uterus was cleared of all clots and debris with a moist laparotomy sponge. Corners of the uterine incision were grasped with Allis clamps. The uterine incision was reapproximated with # 1 Vicryl suture in a running, locked stitch. Second layer of the same stitch was used to imbricate the incision. Vesicouterine peritoneum was reapproximated in a running locked stitch with 0-Vicryl suture. Hemostasis was noted. Posterior cul-de-sac was cleaned with moist laparotomy sponge. Gutters cleared of all clots and debris with a moist laparoto
[2023-07-26 06:20] LABS: Basophils % 0.1 % (0.1-2.0); Eosinophils # 0.1 K/mm3 (0.0-0.4); Eosinophils % 0.3 % (0.1-12.0); Hematocrit 32.4 % (37.0-47.0); Hemoglobin 11.2 g/dL (12.2-16.2); Lymphocytes # 1.7 K/mm3 (0.7-4.5); Lymphocytes % 6.3 % (10-50); Mean Corpuscular HGB Conc 34.7 g/dL (31.8-35.4); Mean Corpuscular Volume 101.1 fl (81-99); Mean Platelet Volume 9.7 fl (7.4-10.4); Monocytes # 0.8 K/mm3 (0.1-1.0); Monocytes % 2.9 % (1.7-9.3); Neutrophils # 23.9 K/mm3 (1.8-7.8); Neutrophils % 90.5 % (37.0-80.0); Platelet Count 322 K/mm3 (142-424); Red Blood Count 3.21 M/mm3 (4.20-5.40)
[2023-07-26 06:29] LABS: White Blood Count 26.4 K/mm3 (4.8-10.8)
[2023-07-26 06:30] LABS: MANUAL DIFFERENTIAL MANUAL DIFFERENTIAL (MANUAL DIFF)
[2023-07-26 07:41] VITALS: BP 113/67; PULSE 89; RESP 18; TEMP 36.9; O2SAT 98
[2023-07-26 07:51] LABS: Lymphocytes % 8 % (10-50); Macrocytosis 1+; Monocytes % 2 % (2-9); Neutrophils % 88 % (42-76); Platelet Estimate Normal; Total Cells Counted 100
[2023-07-26 09:40] LABS: Microscopic, Urine URINE MICROSCOPIC (MICROSCOPIC)
[2023-07-26 10:01] LABS: Appearance,Urine CLEAR (Clear); Bilirubin,Urine Negative (Negative); Blood, Urine 2+ (Negative); Color,Urine YELLOW (Yellow); Glucose,Urine (UA) Negative (Negative); Ketones,Urine Negative (Negative); Leukocyte Esterase,Urine Negative (Negative); Nitrate,Urine Negative (Negative); Protein,Urine Negative (Negative); Specific Gravity, Urine 1.015 (1.005-1.030); Urobilinogen,Urine 0.2 EU/dl (0.2)
[2023-07-26 10:12] LABS: Bacteria,Urine Trace /lpf
--- NOTE | 2023-07-26 12:47 | P.PNANES_ITS ---
[facility] Anesthesia Record Part II Anesthesia Record Part II Discharge Time: 09:05 Destination: Obstetric PACU nurse assessment reviewed?: Yes Patient Condition:: Good Anesthesia Complications:: None Swallowing reflex intact?: Yes Airway Patency: Patent Cyanosis?: No Blood Pressure: 109/69 SaO2: 99 Respiratory Rate: 19 Pulse Rate: 76 Temperature: 97.5 F Mental Status: Alert & Oriented Pain level:: 0 Nausea and/or vomitting:: None Intake, IV Amount: 0 Hydration: Adequate
[2023-07-26 12:48] VITALS: BP 109/69; PULSE 76; RESP 19; TEMP 36.4; O2SAT 99
--- NOTE | 2023-07-26 12:50 | EXP.DC.SUM ---
General Admission date:: 07/25/23 Discharge date: 07/26/23 HPI HPI HPI: POD # 1 s/p RTLCS, BS She is resting comfortably in bed. Pain controlled. Reports light lochia. Breast feeding. Voiding without difficulty and passing flatus. Tolerating regular diet. Denies fever/chills, chest pain and shortness of breath. Denies headaches, vision changes, lightheadedness/dizziness. No lower extremity swelling. Ambulating well ad lyle. Hospital Course Hospital Course Hospital Course: Mrs Myriam Ulrich is a 33 yo at 37w4d who presented to [facility] for scheduled repeat with bilateral salpingectomy. Repeat scheduled at 37w4d for onset of labor with history of prior . She complained of sharp pelvic pains, pelvic pressure and contractions. She reported enormous amount of pressure and pain in her vagina. Upon exam baby's head was +1 station. She has had contractions for several weeks. She received Celestone x 2 doses at 36 weeks. History of delivery at 36 weeks x 2. Ultrasound with PDC 07/20/23 demonstrated EFW 21 %ile with AC at 9 %ile. She underwent repeat low transverse section with bilateral salpingectomy on 07/25/23. She delivered a live male baby, Patel, weighing 6 lb 0 oz. APGARs 9, 9. EBL 400 mL. She did well /postoperatively. Pain controlled. Reports light lochia. Breast feeding. Voiding without difficulty and passing flatus. Tolerating regular diet. Denies fever/chills, chest pain and shortness of breath. Denies headaches, vision changes, lightheadedness/dizziness. No lower extremity swelling. Ambulating well ad lyle. Vital signs stable afebrile. Heart regular rate and rhythm. Lungs clear to auscultation. Abdomen soft, nontender. Incision clean/dry/intact with steri strips. No lower extremity edema. Ambulating well ad lyle. She was discharged home on POD #1 with instructions to follow-up in the office in 2 weeks or sooner if needed. Exam Data for Last 24 hours Vital signs and Labs for Last 24 Hours: Temp Pulse Resp BP Pulse Ox O2 Del Method 98.5 F 89 19 113/67 98 Room Air 07/26/23 07:41 07/26/23 07:41 07/26/23 12:48 07/26/23 07:41 07/26/23 07:41 07/26/23 07:41 Laboratory Results - last 24 hr 07/26/23 06:06: WBC 26.4 H* D, RBC 3.21 L, Hgb 11.2 L, Hct 32.4 L, MCV 101.1 H, MCH 35.0 H, MCHC 34.7, RDW 13.0, Plt Count 322, MPV 9.7, Neut % (Auto) 90.5 H, Lymph % (Auto) 6.3 L, [place] % (Auto) 2.9, Eos % (Auto) 0.3, Baso % (Auto) 0.1, Neut # (Auto) 23.9 H, Lymph # (Auto) 1.7, [place] # (Auto) 0.8, Eos # (Auto) 0.1, Baso # (Auto) 0.0, Total Counted 100, Neutrophils % (Manual) 88 H, Band Neutrophils % 2.0, Lymphocytes % (Manual) 8 L, Monocytes % (Manual) 2, Platelet Estimate Normal, Macrocytosis 1+, Screen Negative, Baby's Rh Status Positive, Rhogam Infusion Rhogam release 07/26/23 09:30: Urine Color Yellow, Urine Appearance Clear, Urine pH 6.0, Ur Specific [place] 1.015, Urine Protein Negative, Urine Glucose (UA) Negative, Urine Ketones Negative, Urine Blood 2+, Urine Nitrate Negative, Urine Bilirubin Negative, Urine Urobilinogen 0.2, Ur Leukocyte Esterase Negative, Urine RBC 10-20, Urine WBC None, Ur Squamous Epith Cells 3-5, Urine Bacteria Trace I & O for Last 24 hours: Intake & Output 07/23/23 07/24/23 07/25/23 07/26/23 23:59 23:59 23:59 23:59 Intake Total 1999 / 1999 0 / 0 Output Total 1200 / 1200 Balance 800 / 800 0 / 0 Weight 130 lb Constitutional Constitutional: no acute distress and cooperative *Routine HEENT Exam Head: Present normocephalic and atraumatic Eye: Absent conjunctivae pink ENT: Present mucous membranes moist *Routine Neck Exam Neck: Present full ROM *Routine Respiratory Exam Respiratory: Present CTA bilaterally and normal respiratory effort *Routine Cardiovascular Exam Cardiovascular: Present RRR *Routine Abdominal Exam Abdominal: Present soft and normoactive bowel sounds; Absent tenderness or distended Comments: Uterine fu
== END 2023-07-26 15:50 | disposition home or self-care (01) | DRG 785 ==
PROVIDERS: Admitting Provider Obstetrics & Gynecology; PCP Family Medicine; Visit Provider Obstetrics & Gynecology
PROC: 10D00Z1 Extraction of Products of Conception, Low, Open Approach (ICD-10-PCS; principal; 2023-07-25 07:30)
DX: O34.211 Maternal care for low transverse scar from previous cesarean delivery (principal); N85.8 Other specified noninflammatory disorders of uterus; Z3A.37 37 weeks gestation of pregnancy; Z37.0 Single live birth; O99.334 Smoking (tobacco) complicating childbirth; Z30.2 Encounter for sterilization; O36.5930 Maternal care for other known or suspected poor fetal growth, third trimester, not applicable or unspecified
CPT/HCPCS: 59514; 58700; 36415; 59025; 80053; 80305; 81001; 85007; 85025; 85461; 86850; 87086; 88302; 96374; C9290; G0463; J2405; J2790

== ENCOUNTER 2023-09-05 06:06 | Emergency (ER) | payer BC, SELFPAY ==
[2023-09-05 06:07] VITALS: BP 119/69; PULSE 125; RESP 18; TEMP 37.1; O2SAT 97; BMI 18.3
--- NOTE | 2023-09-05 06:23 | HMH.EDGENADL ---
Discharge Plan Disposition Patient Disposition: Home, Self-Care Prescriptions Prescriptions: No Action Classic 28 mg iron- 800 mcg tablet 1 tab PO DAILY Referrals Follow up/Referrals: Es Lazcano MD [Primary Care Provider] - See instructions Activity Restrictions/Add. Instructions Additional Instructions/Restrictions: At this time it was felt you are safe to be discharged home. If new or worsening symptoms please do not hesitate to return the emergency department. If symptoms persist please follow-up with your family doctor as you are able. Clinical Impressions Clinical Impression: Strep pharyngitis Discharge ED Provider: Sarbjit Ac General Adult HPI <Sarbjit Ac MD - Last Filed: 09/05/23 06:46> General Chief complaint: Upper Respiratory Infection Stated complaint: sore throat,hard to swollow Time Seen by Provider: 09/05/23 06:09 Mode of Arrival: Ambulatory Source of Information: Patient Limitations: No Limitations Description of Symptoms (Recalled from ER Triage Doc. by RN): Patient reports throat pain for 2 days. It's painful to speak and feels like her throat is tight. Patient reports low grade fever at home, nasal congestion, and mild cough. Patient states that kids have been sick. History of Present Illness HPI narrative: 33-year-old female, approximately 1 month , presents with sore throat. She reports that she has had sore throat for the last couple of days. She has had a low-grade fever at home. She reports congestion and cough. She reports that her children have had strep throat recently as well. Reports throat pain became significantly worse last night, she reports she is unable to swallow since last night. Denies any pain with neck range of motion. Denies any respiratory distress. Related Data Home Medications Medication Instructions Recorded Confirmed vits no.[id number]-ferrous fum 1 tab PO DAILY 02/23/23 08/09/23 28 mg iron-folic acid 800 mcg tablet (Classic ) Allergies Allergy/AdvReac Type Severity Reaction Status Date / Time No Known Allergies Allergy Verified 08/09/23 09:23 PFSH <Sarbjit Ac MD - Last Filed: 09/05/23 06:46> [facility] Disclaimer: The information contained in this section may have been updated after the patient was seen, as this information can be updated by other users. Medical History Nausea and vomiting in Onset (spontaneous) of labor after 37 completed weeks of gestation but before 39 completed weeks gestation, with delivery by (planned) section Request for sterilization Rh negative status during Tobacco abuse Tobacco use affecting , antepartum Vaginal trauma Surgical History Hx of bilateral salpingectomy with RLTCS on 07/25/23 Hx of section Family History Other No significant family history Social History Smoking Status: Never smoker second hand exposure: No alcohol intake: never substance use type: denies use current occupational status: unemployed Travel in the last 8 weeks: None household members: spouse and children do you feel safe at home: Yes victim of physical abuse: No victim of emotional abuse: No victim of sexual abuse: No would you like helpful sources: No <Sarbjit Ac MD - Last Filed: 09/05/23 06:46> ROS Obtained: Yes All systems reviewed & no additional complaints except as documented Physical Exam <Srabjit Ac MD - Last Filed: 09/05/23 06:46> General General appearance: alert Comment: Uncomfortable appearing, hoarse voice Head Head exam: atraumatic and normocephalic Eye Eye exam: Present normal appearance, PERRL and EOMI ENT ENT exam: Present TM's normal bilaterally and other (P
[2023-09-05 07:03] LABS: Strep Scrn Group A (Rapid) Positive (Negative)
[2023-09-05 07:15] VITALS: PULSE 104
[2023-09-05 07:36] VITALS: BP 119/69; PULSE 96; RESP 17; TEMP 36.7
== END 2023-09-05 07:38 | disposition home or self-care (01) ==
PROVIDERS: Emergency Provider Emergency Medicine; PCP Family Medicine
DX: J02.0 Streptococcal pharyngitis (principal); R09.81 Nasal congestion; R05.9 Cough, unspecified
CPT/HCPCS: 87430; 96372; 99283; J0561

== ENCOUNTER 2023-11-10 08:26 | Outpatient (CLI) | payer BC, SELFPAY ==
--- NOTE | 2023-11-10 08:32 | XR_ITS ---
FINAL REPORT CLINICAL HISTORY: Right foot pain FINDINGS: RIGHT FOOT 3 views of the right foot were obtained. There is no acute fracture or dislocation. Visualized joint spaces are normally aligned. Soft tissues are unremarkable. IMPRESSION: No acute bony abnormality. Reviewed, Interpreted and Dictated by Red Garcia MD Transcribed by Ilda Pollock Authenticated and [facility]
--- NOTE | 2023-11-10 08:32 | XR_ITS ---
FINAL REPORT CLINICAL HISTORY: Left foot pain FINDINGS: LEFT FOOT Three views of the left foot demonstrate no acute fracture or dislocation. The visualized joint spaces are normally aligned. The soft tissues are unremarkable. IMPRESSION: No acute bony abnormality. Reviewed, Interpreted and Dictated by Red Garcia MD Transcribed by Ilda Pollock Authenticated and [facility]
== END 2023-11-10 23:59 ==
LOC: RAD 08:26
PROVIDERS: PCP Family Medicine; Visit Provider Nurse Practitioner Family
DX: M79.671 Pain in right foot (principal); M79.672 Pain in left foot
CPT/HCPCS: 73630

== ENCOUNTER 2023-12-25 23:27 | Outpatient (CLI) | payer BC, SELFPAY | END 2023-12-25 23:59 | LOC: LAB.DROPOF 23:27 | PROVIDERS: PCP Podiatrist; Visit Provider Podiatrist | DX: M79.671 Pain in right foot (principal); B35.3 Tinea pedis; L57.0 Actinic keratosis; L08.9 Local infection of the skin and subcutaneous tissue, unspecified | CPT/HCPCS: 87070; 87102; 87205; 87206; 87220 ==

== ENCOUNTER 2024-01-01 16:32 | Outpatient (CLI) | payer BC, SELFPAY ==
--- NOTE | 2024-01-01 16:36 | XR_ITS ---
PROCEDURE INFORMATION: Exam: XR Left Foot Exam date and time: 01/01/2024 4:45 PM Age: 33 years old Clinical indication: Injury or trauma; Other: Vacumm dropped on foot; Swelling (edema) and other: Bruising; Left; Additional info: Left foot pain and bruising after injury TECHNIQUE: Imaging protocol: Radiologic exam of the left foot. Views: 1 or 2 views. COMPARISON: CR XR FOOT WT BEARING LT 3V 11/10/2023 8:39 AM FINDINGS: Bones/joints: There is no evidence of acute fracture.There is no evidence of malalignment or dislocation. Soft tissues: Normal. IMPRESSION: There is no evidence of acute fracture.There is no evidence of malalignment or dislocation.
== END 2024-01-01 23:59 ==
LOC: RAD 16:33
PROVIDERS: PCP Nurse Practitioner; Visit Provider Nurse Practitioner
DX: M79.672 Pain in left foot (principal)
CPT/HCPCS: 73620

== ENCOUNTER 2024-01-22 14:34 | Outpatient (CLI) | payer BC, SELFPAY ==
--- NOTE | 2024-01-22 14:38 | XR_ITS ---
FINAL REPORT CLINICAL HISTORY: chest wall pain, costochondritis smoker x 10 yrs COMPARISON: None FINDINGS: Two views of the chest were obtained. The heart size and pulmonary vascularity are within normal limits. The mediastinum is normal. No acute pulmonary abnormality is identified. There is no pneumothorax. The bony thorax is intact. IMPRESSION: No active cardiopulmonary disease. Reviewed, Interpreted and Dictated by Lawrence Graves III, MD Transcribed by Nanci Calvo Authenticated and [facility]
--- NOTE | 2024-01-22 15:10 | ECG_ITS ---
APPROVED REPORT Exam: Resting ECG HR:68 bpm ECG Measurements Heart Rate 68 AXES NV 157 P 83 QRSd 101 QRS 104 QT 395 T 64 QTc 413 Conclusion SINUS RHYTHM LEFT ATRIAL ENLARGEMENT [-0.15mV P-WAVE IN V1/V2] RIGHT AXIS DEVIATION [QRS AXIS > 100] INCOMPLETE RIGHT BUNDLE BRANCH BLOCK [90+ ms QRS DURATION, TERMINAL R IN V1/V2, 40+ ms S IN I/aVL/V4/V5/V6] ABNORMAL ECG UNCONFIRMED REPORT Electronically signed by : Jameson Salomon MD 01/23/2024 21:36:31
[2024-01-22 18:07] LABS: Basophils # 0.1 K/mm3 (0-0.2); Basophils % 1.1 % (0.1-2.0); Chloride 108 mmol/L (98-107); Eosinophils # 0.1 K/mm3 (0.0-0.4); Eosinophils % 2.5 % (0.1-12.0); Hematocrit 43.1 % (37.0-47.0); Hemoglobin 13.7 g/dL (12.2-16.2); Lymphocytes # 2.2 K/mm3 (0.7-4.5); Mean Corpuscular HGB Conc 31.8 g/dL (31.8-35.4); Mean Corpuscular Hemoglobin 32.3 pg (27.0-31.2); Mean Corpuscular Volume 101.7 fl (81-99); Mean Platelet Volume 10.1 fl (7.4-10.4); Monocytes # 0.3 K/mm3 (0.1-1.0); Monocytes % 5.2 % (1.7-9.3); Neutrophils # 2.7 K/mm3 (1.8-7.8); Neutrophils % 50.2 % (37.0-80.0); Platelet Count 238 K/mm3 (142-424); Potassium 3.9 mmoL/L (3.5-5.1); Red Blood Count 4.24 M/mm3 (4.20-5.40); Red Cell Distribution Width 13.9 % (11.5-17.5); Sodium 139 mmol/L (136-145); White Blood Count 5.3 K/mm3 (4.8-10.8)
[2024-01-22 18:10] LABS: Alanine Aminotransferase 22 U/L (12-78); Albumin Level 4.5 g/dl (3.5-5.0); Albumin/Globulin Ratio 1.8 (1.1-1.8); Alkaline Phosphatase 81 U/L (38-126); Anion Gap 7.9 mEq/L (5-15); Aspartate Amino Transferase 31 U/L (14-36); Bilirubin,Total 0.6 mg/dl (0.2-1.3); Blood Urea Nitrogen 16 mg/dl (7-17); Carbon Dioxide 27 mmol/L (22.0-30.0); Estimated Glomerular Filt Rate 83 ml/min (>60); GFR (African American) 101 ML/MIN (>60); Globulin 2.5 g/dL (1.3-3.2)
[2024-01-22 18:11] LABS: Calcium 9.5 mg/dl (8.4-10.2); Glucose 90 mg/dl (74-100)
[2024-01-22 18:54] LABS: Hemoglobin A1C 5.4 % (4.0-6.0)
== END 2024-01-22 23:59 | disposition home or self-care (01) ==
LOC: LAB 14:35
PROVIDERS: PCP Nurse Practitioner; Visit Provider Nurse Practitioner
DX: R07.89 Other chest pain (principal); M94.0 Chondrocostal junction syndrome [Tietze]; Z13.1 Encounter for screening for diabetes mellitus; L57.0 Actinic keratosis; Z72.0 Tobacco use
CPT/HCPCS: 71046; 80053; 83036; 84443; 85025; 87086; 93005

== ENCOUNTER 2024-06-11 14:11 | Outpatient (CLI) | payer BC, SELFPAY ==
--- NOTE | 2024-06-11 14:12 | MM_ITS ---
PROCEDURE INFORMATION: Exam: US Right Breast, Complete MG Right Diagnostic Breast Tomosynthesis Exam date and time: 06/11/2024 2:08 PM Age: 34 years old Clinical indication: Region of concern in the right breast. TECHNIQUE: Imaging protocol: Complete ultrasound of all four quadrants of the right breast and the retroareolar regions, including ultrasound of the axilla when performed. Right Diagnostic tomosynthesis and 2D mammography including computer-aided detection (CAD) when performed. Unilateral or bilateral exam. COMPARISON: No relevant prior studies available. FINDINGS: MAMMOGRAPHY: Breast composition: The breasts are extremely dense, which lowers the sensitivity of mammography. Breast mammogram findings: Right breast CC and MLO tomosynthesis views were obtained. Mass: No suspicious masses. Architectural distortion: None. Calcifications: No suspicious calcifications. Asymmetric density: None. Skin thickening: None. Axillary adenopathy: None. ULTRASOUND: Breast ultrasound findings: Right breast ultrasound: At 6 o'clock, 8 cm from the nipple in the region of palpable concern there is an irregular hypoechoic mass measuring 0.6 x 0.3 x 0.8 cm. This demonstrates correlate margins. There are no suspicious or solid masses in the breast. No abnormal lymph nodes in the axilla. IMPRESSION: Mass in the right breast at 6 o'clock is suspicious. Recommend ultrasound-guided biopsy. ASSESSMENT: BI-RADS Category 4: Suspicious.
--- NOTE | 2024-06-11 14:54 | XR_ITS ---
FINAL REPORT CLINICAL HISTORY: low back pain COMPARISON: None FINDINGS: LUMBAR SPINE: AP and lateral views of the lumbar spine were obtained. There is no prior exam for comparison. There is no acute fracture or malalignment. Vertebral body height is preserved. Disc space height is preserved. No acute paraspinal abnormality. IMPRESSION: Unremarkable 3 view lumbar spine series. Reviewed, Interpreted and Dictated by Es Saul MD Transcribed by Sarah Mobley Authenticated and [facility]
== END 2024-06-11 23:59 | disposition home or self-care (01) ==
LOC: RAD 14:12
PROVIDERS: PCP Nurse Practitioner; Visit Provider Nurse Practitioner
DX: N61.0 Mastitis without abscess (principal); N64.4 Mastodynia; D48.61 Neoplasm of uncertain behavior of right breast; M54.41 Lumbago with sciatica, right side; M62.830 Muscle spasm of back
CPT/HCPCS: 72100; 76641; 77061; 77065; G0279

== ENCOUNTER 2024-06-19 17:01 | Outpatient (RCR) | payer BC, SELFPAY ==
--- NOTE | 2024-06-19 18:14 | HMH.PTOPEV ---
PT Outpatient Evaluation Rehab PT Outpatient Evaluation Start: 06/19/24 17:52 Freq: Status: Active Protocol: Document 06/19/24 17:52 MÓNICA (Rec: 06/19/24 18:13 MÓNICA [id number]) E-signed By Narinder Chacko, PT Outpatient Therapy Subjective History Subjective History Patient is a 34 year old female presenting to outpatient PT with reports of chronic LBP with intermittent BLE radicular symptoms L>R. Symptoms of insidious onset. Patient has experienced 5 pregnancies, with the 2 most recently requiring . SI special tests indicate L upslip of the innominant. Patient reports relief with lumbar flexion. Most recent imaging unremarkable. No other comorbidities to report. New diagnosis of cancer in past 12 No months? Chief Complaint Pain,Stiff,Paresthesia Symptom Type Ache,Throb,Sharp,Dull,Stabbing ,Burning Symptoms Relieved By Rest/Positioning,Heat Symptoms Aggravated By Sitting,Standing,Bending/ Stooping,Physical Activity, Walking,Lifting Prior Functional Limitations None Current Functional Limitations Lifting,Housework,Standing, Sitting,Walking,Bending/ Stooping Symptom Description Constant but Variable Level of pain today (0-10) 6 Pain scale - at its best (0-10) 2 Pain scale - at its worst (0-10) 9 Lumbopelvic Eval Posture Thoracic Spine Posture Standing Position Neutral Lumbar Spine Posture Standing Position Decreased Lordosis Assistive device Assistive Devices None / NA Palapation tenderness left Lumbar/Sacral Palpation Findings Tenderness Lumbar/Sacral Palpation Overall Comment L QL/SIJ/post hip mm 3/4 Accessory Movement L4 bilateral L5 bilateral S1 bilateral Range of Motion Lumbar Spine Active Flexion Range of WNL Motion (degrees) Lumbar Spine Active Extension Range of 10 Motion (degrees) Left Lumbar Spine Lateral Flexion Active WNL Range of Motion (degrees) Right Lumbar Spine Lateral Flexion 14 Active Range of Motion (degrees) Lumbar Spine ROM Limitations Soft Tissue Tightness Manual Muscle Test Bilateral Knee Extension Strength Grade 5 Normal Knee Flexion Strength Grade 5 Normal Hip Flexion Strength Grade 5 Normal Extensor Hallucis Longus Strength Grade 5 Normal Ankle Dorsiflexion Strength Grade 5 Normal Gastronemius/Soleus Strength Grade 5 Normal Altered Sensation LE Dermatome Level S1 Comment INT Special Tests Hip Landen (ARIANA) Test Positive Left,Positive Right Hip Aidan Test Positive Left,Positive Right Hip Piriformis Test Positive Left,Positive Right Josiah Test Positive Sacroiliac Joint Distraction Test Positive Left,Positive Right Lumbar Spine Rodriguez Test Positive Left,Positive Right Lumbar Long Jeddo Distraction Test/Manual Positive Traction Oswestry Index Section 1 Pain Intensity The pain comes and goes and is moderate Section 2 Personal Care (Washing,Dresing) my way of washing or dressing even though it causes some pain Section 3 Lifting I can only lift very light weights at most Section 4 Walking I cannot walk at all without increasing pain Section 5 Sitting Pain prevents me from sitting for more than one hour Section 6 Standing I avoid standing because it increases the pain immediately Section 7 Sleeping Because of my pain, my normal night's sleep is less than 6 hours sleep Section 8 Social Life My social life is normal but increases the degree of pain Section 9 Traveling I get extra pain while traveling, but it does not compel me to seek al Section 10 Changing Degreee of Pain My pain is gradually getting worse Score and Risk Level Oswestry Sc 29 Oswestry Risk Level Severe Disability Outpatient Therapy Assessment Impairments Problems/Impairmments Palpation Tenderness,Impaired Range of Motion,Impaired Strength,Impaired Walking, Impaired Standing,Impaired Sitting,Impaired Household Care,Impaired Bending,Impaired Recreational Activities, Subjective C/O Pain Prognosis Rehab Potential Good Clinical Impression Consistent with Diagnosis Yes Short Term Goals Number of Weeks 2 Decrease Subjective C/O Pain Yes: 5/10 at worst Patient to be Ind w/ HEP Yes Senior Care Goals Number of Weeks 4-6 Decreased Palpation Tenderness Yes: 1/4 Increase Range of Motion Yes: WNL Increase Strength Yes: core stabilizers 5/5 Increase Ability to Walk Yes: 1 hr without difficulty Improve Ability For Household Care Yes Improve Ability to Bend Yes Improve Oswestry Score Yes: mild disability Decrease Subjective C/O Pain Yes: 2/10 at worst Outpatient Therapy Plan of Care Treatment Plan May Include Therapeutic Exercise Including Home Yes Exercise Program Manual Therapy Techniques Yes Neuromuscular Re-education Yes Therapeutic Activities to Return to Yes Previous Functional/Work Level Gait Training Yes ADL/Self Care Education Yes Mechanical Traction Yes Dry Needling Yes Thermal Modalities Yes Electrical Stimulation Yes Ultrasound/Phonophoresis Yes Iontophoresis Yes Orthotics/Bracing/Splinting Yes Massage Yes Eval/Re-Eval Yes Frequency Times per week 2-3 Addendums This patient is a candidate for social No or vocational rehab? Patient/Guardian verbally acknowledges Yes understanding of treatment program and consents to further treatment? Patient/Guardian verbally acknowledges Yes understanding of diagnosis, prognosis and goals for treatment? Eval Complexity PT Charges 46909 - Moderate Complexity Shoulder/Elbow Eval Shoulder Objective Measurements Elbow Objective Measurements PHYSICIAN CERTIFICATION: I certify the specified therapy services for Myriam Ulrich are required, authorized, and reviewed every 30 days.
== END 2024-06-19 23:59 | disposition home or self-care (01) ==
LOC: PT 17:01
PROVIDERS: Visit Provider Nurse Practitioner
DX: M54.41 Lumbago with sciatica, right side (principal); M62.830 Muscle spasm of back
CPT/HCPCS: 97163

== ENCOUNTER 2024-07-03 08:14 | Outpatient (CLI) | payer BC, SELFPAY ==
--- NOTE | 2024-07-03 08:45 | US_ITS ---
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 The right breast was prepped in a routine sterile fashion and locally anesthetized with 1% lidocaine. Standard written informed consent was obtained. A small hypoechoic nodule was targeted within the inferior right breast at 6-7:00. Lesion was questionable for cyst. Upon entry of the nodule with a 22-gauge needle a small amount less than 1 mL of white, somewhat milky fluid was aspirated. The lesion was completely decompressed and no longer visible. Fluid was sent to cytology. There was no postprocedure mammogram performed since lesion was only readily evident sonographically. Procedure was well tolerated . CONCLUSION: 1. Technically successful ultrasound guided complete aspiration of right breast lesion as above. 2. Lesion most likely represents a benign complex cyst with cytology pending. Authenticated and ERN
== END 2024-07-03 23:59 | disposition home or self-care (01) ==
LOC: RAD 08:15
PROVIDERS: PCP Nurse Practitioner; Visit Provider Nurse Practitioner
DX: D48.61 Neoplasm of uncertain behavior of right breast (principal)
CPT/HCPCS: 10005

== ENCOUNTER 2025-01-06 13:34 | Outpatient (CLI) | payer MEDICAID, SELFPAY ==
--- NOTE | 2025-01-06 13:30 | US_ITS ---
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 There is a 7 mm ovoid hyperechoic focus in the subcutaneous soft tissues with distal shadowing. IMPRESSION: 7 mm ovoid hyperechoic focus in the subcutaneous soft tissues. Reviewed, Interpreted and Dictated by Red Garcia MD Transcribed by Lorrie Dunn Authenticated and [facility]
== END 2025-01-06 23:59 | disposition home or self-care (01) ==
LOC: RAD 13:35
PROVIDERS: PCP Nurse Practitioner; Visit Provider Nurse Practitioner
DX: D48.5 Neoplasm of uncertain behavior of skin (principal)
CPT/HCPCS: 76882

== ENCOUNTER 2025-05-01 16:05 | Outpatient (CLI) | payer OTHER, SELFPAY ==
--- OUTSIDE RECORDS SUMMARY | 2024-04-20 05:00 | XMS_ITS ---
Author Organization [facility] Address [address] [facility] [address] [place] [address] Care Team Providers Care Rubber Cutter Name Role Phone Tio Barroso Unavailable [phone] Migration, Provider Unavailable Unavailable Allergies Allergen (clinical [...] belts Encounters Encounter Location Date Provider Diagnosis [facility] [address] [place] [address] 04/20/2024 Provider Migration Plan Of Treatment No Information Progress Notes * Myriam ULRICHDOB:1990 (34 yo F)Acc No.[id number]:04/20/2024 Patient: Myriam DSOUZA :1990 A ge:33 Y S ex:Female Address:[address] [place] [address], [address] Subjective: * Chief Complaints: * Medical History: *NO SIGNIFICANT GENETIC HISTORY Congenital heart defect 7 [place]: Adopted/ Step Children living in household 1 7 [place]: Sexually active - Yes 7 [place]: Self breast exam- yes 7 [place]: Dairy Product Use - Yes * 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
--- OUTSIDE RECORDS SUMMARY | 2025-05-05 16:08 | XMS_ITS | Patient Health Record ---
Author Organization [facility] Address [address] [place] [address] Care Team Providers Care Oxyacetylene Welder Name Role Phone Tio Barroso Unavailable [phone] Allergies Allergen (clinical drug ingredient) Drug/Non Drug Allergy documented on EMR Reaction Allergy Type Onset Date Status Medications: NO KNOWN DRUG ALLERGIES (uncoded) Unspecified Allergy Active Reason For Referral No Information Social History Tobacco Use: Social History Observation [...] [place]: Travel History: Uses seat belts Plan Of Treatment No Information Medical (General) History Medical History History ICD Code *NO SIGNIFICANT GENETIC HISTORY Congenital heart defect 7 [place]: Adopted/ Step Children living i n household 1 7 [place]: Sexually active - Yes 7 [place]: Self breast exam- yes 7 [place]: Dairy Product Use - Yes Surgical History Surgery Date(Month/Year) Rudysarian section 08/06/22
--- OUTSIDE RECORDS SUMMARY | 2025-05-05 16:08 | XMS_ITS | Clinical Summary ---
Author Organization [facility] Address [address] [place] [address] Care Team Providers Care Business Intelligence Developer Name Role Phone Unavailable Primary Care Provider Unavailabl e Social History Tobacco Use Types Packs/Day Years Used Date Smoking Tobacco: Never Assessed Comments Unknown Sex and Gender Information Value Date Recorded Sex Assigned at Not on file Legal Sex Female 7:46 PM EDT Gender Identity Not on file Sexual Orientation Not on file Plan of Treatment Not on file
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
--- OUTSIDE RECORDS SUMMARY | 2025-05-05 16:08 | XMS_ITS | Clinical Summary ---
Author Organization [facility] Address [address] [place] [address] Care Team Providers Care Laster Hand Name Role Phone Provider, No Known Primary Care Provider Unavail able Allergies No known active allergies Medications Vit-Fe Fumarate-FA ( vitamin 27-0.8) 27-0.8 MG tablet tablet Take by mouth Daily. Active Active Problems Problem Noted Date Diagnosed Date Choroid plexus cysts, , affecting care of mother, antepartum 05/23/2023 Assessment & Plan (05/23/2023 1:07 PM EDT): The potential complications associated with choroid plexus cysts were discussed with the patient. Choroid plexus cysts are associated with an increase in risk for trisomies 18 and 21 syndrome. In low risk populations with otherwise normal anatomy and normal growth, however, these likely represent a normal variant as they are present in 2-3% of the population. There are numerous abnormal ultrasonographic findings in trisomy 18 syndrome including clenching of the hands, rockerbottom feet, cleft lip, congenital heart defects, abdominal wall defects, diaphragmatic hernia, neural tube defects, cystic hygroma, single umbilical artery as well as choroid plexus cysts. As the ultrasonographic evaluation is negative for these findings except for the presence of a choroid plexus cyst (please see above complete ultrasound description), the likelihood of trisomy 18 syndrome is small particularly if 1st and/or 2nd trimester screening are negative. Choroid plexus cysts pose no concern for abnormal brain growth or development in isolation. Typically these cysts will resolve by 26 weeks' gestation. On ultrasound today no choroid plexus cysts are seen. Patient understands that this does not decrease her slightly increased risk for chromosomal abnormalities. Options for genetic testing were reviewed including amniocentesis and cell free DNA screening after careful consideration the patient declines all screening. Previous delivery affecting 0 05/23/2023 05/23/2023 IUGR (intrauterine growth re tardation) affecting mother, third trimester, not applicable or unspecified fetus 05/23/2023 Assessment & Plan (07/20/2023 2:44 PM EDT): Patient returns today for follow-up of previous diagnosis of intrauterine growth restriction. On her last scan her abdominal circumference had increased to the 18th percentile and there was no evidence of intrauterine growth restriction. Ultrasound today demonstrates a baby at 5 pounds 13 ounces, approximately 20th percentile for overall weight, but the abdominal circumference is at the 9th to the 10th percentile. This may represent very mild late intrauterine growth restriction. As such we recommend increased rest and nutrition to the patient. We would continue testing that is currently being performed. As amniotic fluid and umbilical artery Dopplers are normal believe that all this testing can be done at her local billet header's office. If the patient reaches 39 weeks gestation would recommend delivery at that time. If any other complications arise would recommend delivery then. Patient was counseled extensively regarding movement and will contact her billet header immediately if she notices any decreased movement. Assessment & Plan (06/20/2023 2:55 PM EDT): Today fetus weighs 1845 g at the 34th percentile, abdominal circumference now at the 18th percentile. Normal amniotic fluid. Patient return in 4 weeks for repeat ultrasound. Assessment & Plan (05/23/2023 1:06 PM EDT): There is considerable variability in the definition of what constitutes a growth-restricted fetus. Definitions have included estimated weight below the 3rd percentile, below the 5th percentile or below the 10th percentile for gestational age. Subnormal growth may be a consequence of error in dating criteria or result from chronic uteroplacental insufficiency, exposure to drugs or environmental agents, congenital infections or intrinsic genetic limitations of growth potential. Early or symmetric IUGR can suggest chromosomal abnormalities such as trisomies, triploidies or maternal uniparental disomy. Asymmetrical IUGR may result from nutritional compromise with sparing of head growth and be associated with tobacco abuse, chronic placental abnormalities such as abruption or as a harbinger of preeclampsia. Current recommendations by Copel and Bahjacquelineyar for the management of growth restriction, (Obstet Gynecol January 2014) suggest for patients at term (37 0/7 weeks' gestation or more) that delivery be affected if the estimated weight is less than the 5th percentile, or oligohydramnios is present with an estimated weight of less than the 10th percentile, or with worsening testing results. Otherwise, delivery can be delayed as long as testing is reassuring with plans for elective delivery at 39 weeks' gestation. Induction of labor can be attempted depending on the indication for delivery. If the diagnosis of IUGR is (before 37 weeks' gestation), it is not possible to make absolute recommendations on timing unless other testing is reassuring based on the data from the Growth Restriction Intervention Trial (GRIT), a multinational prospective randomized study (Lancet 2004). It is suggested that growth be monitored every two weeks with consideration for delivery if no growth occurs over the course of 14 days. The patient should receive twice weekly nonstress testing with amniotic fluid volume assessment. Further, the literature would support weekly Doppler ultrasonography of the umbilical artery in the setting of intrauterine growth retardation with hospitalization for evidence of absent or reverse end-diastolic velocities. Delivery should also be considered for worsening testing (biophysical profile score less than 6/8 or nonreassuring heart rate tracing). When delivery before 32 weeks' gestation is imminent, consider intravenous magnesium sulfate administration for neuroprotection. On ultrasound today the fetus overall growth is adequate however the abdominal circumference is lagging approximately the 5th percentile. We have recommended the patient be at increased rest and increase nutrition. We have recommended smoking cessation. We have recommended twice-weekly testing. With only mild abdominal circumference lag and normal Dopplers and fluid we believe that this testing can be done at the local OB office. We will rescan the fetus for growth and repeat Dopplers in 3 weeks. Patient was counseled extensively regarding decreased movement. She will contact her local OB office immediately if she notices any decreased movement. Social History Tobacco Use Types Packs/Day Years Used Date Smoking Tobacco: Every Day Cigarettes Smokeless Tobacco: Never Abuse Screen Answer Date Recorded Unsafe at Home or Work/School Not on file Feels Threatened by Someone? Not on file 08/2023 Does Anyone Keep You from Co ntacting Others or Doint Things Outside the Home? Not on file 06/29/2023 Physical Sign of Abuse Present Not on file 1 Housing Stability Answer Date Recorded Current Living Arrangements Not on file 06/18 Potentially Unsafe Housing Conditions Not on moni e 06/29/2023 Family and Community Support Answer Danny e Recorded Help with Day-to-Day Activities Not on file 06/29/2023 Lonely or Isolated Not on file 06/29/2023 Employment Answer Date Recorded Do you want help finding or keeping work or a jesse b? Not on file 06/29/2023 Disabilities Answer Date Recorded Concentrating, Remembering, or Making Decisions Difficulty Not on file 06/29/2023 Doing Errands Independently Difficulty Not on fi le 06/29/2023 Education Answer Date Recorded Help with school or training? Not on file Preferred Language Not on file 06/29/2023 Comments No Sex and Gender Information Value Date Recorded Sex Assigned at Not on file Legal Sex Female 8:18 AM EDT Gender Identity Not on file Sexual Orientation Not on file Last Filed Vital Signs Vital Sign Reading Time Taken Comments Blood Pressure 111/71 07/20/2023 2:20 PM EDT Pulse - - Temperature - - Respiratory Rate - - Oxygen Saturation - - Inhaled Oxygen Concentration - - Weight 60.3 kg (133 lb) 07/20/2023 2:20 PM EDT Height 170.2 cm (5' 7 ) 05/23/2023 12:44 PM EDT Body Mass Index 20.83 05/23/2023 12:44 PM EDT Plan of Treatment Health Maintenance Due Date Last Done Comments Annual Gynecologic Pelvic an d Breast Exam 1991 Pneumococcal Vaccine 0-49 (1 of 2 - PCV) 2010 ANNUAL PHYSICAL 04/10/2023 COVID-19 Vaccine ( - 2023-2 5 season) 2024 INFLUENZA VACCINE 06/18/2025 TDAP/TD VACCINES (2 - Td or Tdap) 06/18/2028 018 HEPATITIS C SCREENING Completed 08/06/2022 , 08/06/2022, 07/15/2022, Additional history exists Care Teams Laster Hand Relationship Specialty Start Date End Date Provider, No Known [place] [address] PCP - General 04/10/23
== END 2025-05-01 23:59 ==
LOC: LAB.DROPOF 05-05 16:06
PROVIDERS: PCP Nurse Practitioner; Visit Provider Obstetrics & Gynecology
DX: N93.9 Abnormal uterine and vaginal bleeding, unspecified (principal); R10.31 Right lower quadrant pain
CPT/HCPCS: 87798; 87801

== ENCOUNTER 2025-05-06 09:23 | Outpatient (CLI) | payer OTHER, SELFPAY ==
--- OUTSIDE RECORDS SUMMARY | 2024-04-20 05:00 | XMS_ITS ---
Author Organization [facility] [place] Address [address] [facility] [address] [place] [address] Care Team Providers Care Residence Leasing Agent Name Role Phone Tio Barroso Unavailable [phone] Migration, Provider Unavailable Unavailable Allergies Allergen (clinical [...] belts Encounters Encounter Location Date Provider Diagnosis [facility] [address] [place] [address] 04/20/2024 Provider Migration Plan Of Treatment No Information Progress Notes * Myriam ULRICHDOB:1990 (34 yo F)Acc No.[id number]:04/20/2024 Patient: Myriam DSOUZA :1990 A ge:33 Y S ex:Female Address:[address] [place] [address], [address] Subjective: * Chief Complaints: * Medical History: *NO SIGNIFICANT GENETIC HISTORY Congenital heart defect 7 [place]: Adopted/ Step Children living in household 1 7 [place]: Sexually active - Yes 7 [place]: Self breast exam- yes 7 [place]: Dairy Product Use - Yes * 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
--- NOTE | 2025-05-06 09:30 | US_ITS ---
PROCEDURE: US TRANSVAGINAL CLINICAL INDICATION: RLQ. abnormal uterine bleeding COMPARISON: No exams were available for comparison FINDINGS: Transvaginal sonographic images of the pelvis were obtained. UTERUS: 7.6 cm x 5.7 cmx 5.5 cm retroverted with a combined endometrial thickness of 6.6mm. There is a trace amount of fluid within the endometrium at the fundus. LEFT OVARY: 6mfn2tzz4.4cm with a volume of 29.6ml. There is a hemorrhagic cyst within the left ovary that measures 3.3 cm x 2.6 cm x 3.0 cm. There is a follicle that measures 2.2 cm x 2.7 cm x 1.8 cm RIGHT OVARY: 3cmx 9qdc0ef with a volume of 7.7ml. There is a follicle within the right ovary measuring 1.7 cm x 1.5 cm x 1.9 cm. Both ovaries are seen and appear normal. Doppler flow to both ovaries are seen. There is a small amount of fluid in the cul-de-sac. IMPRESSION: 1. Retroverted uterus normal in shape and size. The endometrium is thin and within the endometrium at the fundus there is trace fluid. 2. The right ovary is seen and appears normal. There is a 1.9 cm follicle within the right ovary. 3. The left ovary contains what appears to be a hemorrhagic cyst measuring 3.3 cm and a follicle measuring 2.7 cm. 4. There is a small amount of fluid within the cul-de-sac. Dictated by: Jay Fuller MD 05/07/2025 06:18 Jay Fuller MD in OV 05/07/2025 06:18
--- OUTSIDE RECORDS SUMMARY | 2025-05-06 09:31 | XMS_ITS | Clinical Summary ---
Author Organization [facility] Address [address] [place] [address] Phone Care Team Providers Care Software Design Analyst Name Role Phone Unavailable Primary Care Provider [...] (07/27/2022): Added automatically from request for surgery [id number] Breech presentation, no version 07/25/2022 Overview (07/27/2022): Added automatically from request for surgery [id number] S/P primary low transverse 07/25/2022 Overview (07/27/2022): Added automatically from request for surgery [id number] labor in second trimester without delive ry [...] 1633 ; Surgeon: Cecily Lazar MD; Location: [facility]; Service: Gynecology Medical History Medical [...] Cancer Neg Hx Vision Loss Neg Hx Landon's Disease Neg Hx Relation Name Status Comments [...] JANIE BABY A Juan rt, Minerva rosenberg, [facility] Delivery Location:[facility] 2017 34w 3d 0h 06m 0h 06m 5 lb 5 oz (2.41 kg) M Vag-S pont Y Livin g 8 9 BRUIN ,SHARON SSA Tobin Figueredo MD Delivery Location:[facility] ([facility] 2021 Term 37w 0d 0h 02m 0h 02m 5 lb 15.8 oz (2.715 kg) F CSP Spinal N Livin g 9 9 SHARON PROCTOR Meredi th H, MD Complications:Breech present ation,History of delivery,Incompetent cervix Delivery Location:[facility] ([facility]) Last Filed Vital Signs Vital [...] Procedure Name Priority Date/Time Associated Diagnosis Comments SEMICONDUCTOR PACKAGES PLATEMAKER CYTOLOGY REQUEST (PAP ONLY) Routine 10/13/2017 1:22 PM EST Well woman exam from Last 3 Months or Most Recently Relevant to Health Maintenance Results * SEMICONDUCTOR PACKAGES PLATEMAKER CYTOLOGY REQUEST (PAP ONLY) (10/13/2017 1:22 PM EST) CASE REPORT Gynecologic Cytology Report Case: [id number] Authorizing Provider: Cuate Aguirre MD Collected: 10/13/2017 1322 [facility]: 10/13/2017 1322 First Screen: Doug Clemente, TAMMI Rescreen: Calista Camejo CT Specimen: LIQUID-BASED PAP - CERVICAL/ENDOCERV ICAL, Cervix, Endocervical 10/17/2017 12:10 PM EST [facility] PAP FINAL DIAGNOSIS Negative for intraepithelial lesion or malignancy 10/17/2017 12:10 PM EST [facility] at 1210 EST PAP SMEAR ADEQUACY Satisfactory for evaluation 10/17/2017 12:10 PM EST [facility] ENDOCERVICAL T-ZONE Transformation zone present 10/17/2017 12:10 PM EST [facility] EMBEDDED IMAGES 8 12:10 PM EST [facility] PAP DISCLAIMER The Pap Smear is a screening test that aids in the detection of cervical cancer and cancer precursors. Both false positive and false negative results can occur. The test should be used at regular intervals, and positive results should be confirmed before definitive therapy. Processed using the ThinPrep Repair Specialist Automated cytology screening device (DFMSim). 10/17/2017 12:10 PM EST [facility] PAP OTHER FINDINGS Heavy bacterial background. 10/17/2017 12:10 PM EST [facility] Thin Prep ENDOCERVICAL STRUCTURE / Unknown 10/13/2017 1:22 PM EST 10/13/2017 1:22 PM EST Cuate Aguirre MD CYTOLOGY ORDERABLES Final Re sult [facility] [address] [place] [address] from Last 3 Months or Most Recently Relevant to Health Maintenance Insurance [employer] Advance Directives For more information, please contact: [phone] * Full Code (Latest Code Status on File) Date Activated Date Inactivated Comments 08/06/2022 2:39 PM 08/08/2022 2:55 PM * Full Code Date Activated Date Inactivated Comments 07/16/2022 6:58 PM 07/17/2022 1:50 PM * Full Code Date Activated Date Inactivated Comments 07/31/2018 3:46 AM 08/02/2018 5:41 PM
--- OUTSIDE RECORDS SUMMARY | 2025-05-06 09:31 | XMS_ITS | Clinical Summary ---
Author Organization [facility] Address [address] [place] [address] Care Team Providers Care Conveyor Belt Installer Name Role Phone Provider, No Known Primary [...] testing can be done at her local overlock collar setter's office. If the patient reaches 39 weeks gestation would recommend delivery at that time. If any other complications arise would recommend delivery then. Patient was counseled extensively regarding movement and will contact her overlock collar setter immediately if she notices any decreased movement. [...] 08/06/2022, 07/15/2022, Additional history exists Care Teams Conveyor Belt Installer Relationship Specialty Start Date End Date Provider, No Known [facility] [address] PCP - General 04/10/23
--- OUTSIDE RECORDS SUMMARY | 2025-05-06 09:31 | XMS_ITS | Clinical Summary ---
Author Organization [facility] Address [address] [place] [address] Care Team Providers Care Advertising Director Name Role Phone Unavailable Primary Care Provider [...]
--- OUTSIDE RECORDS SUMMARY | 2025-05-06 09:31 | XMS_ITS | Patient Health Record ---
Author Organization [facility] [place] Address [address] [place] [address] Care Team Providers Care Cone Cleaner Name Role Phone iTo Barroso Unavailable [phone] Allergies Allergen (clinical drug ingredient) Drug/Non Drug [...] SIGNIFICANT GENETIC HISTORY Congenital heart defect 7 [facility]: Adopted/ Step Children living i n household 1 7 [facility]: Sexually active - Yes 7 [facility]: Self breast exam- yes 7 [facility]: Dairy Product Use - Yes Surgical History Surgery Date(Month/Year) Rudysarilizzeth section 08/06/22
== END 2025-05-06 23:59 | disposition home or self-care (01) ==
LOC: RAD 09:23
PROVIDERS: PCP Nurse Practitioner; Visit Provider Obstetrics & Gynecology
DX: N85.4 Malposition of uterus (principal); N83.202 Unspecified ovarian cyst, left side; N93.9 Abnormal uterine and vaginal bleeding, unspecified; R93.89 Abnormal findings on diagnostic imaging of other specified body structures; R10.31 Right lower quadrant pain
CPT/HCPCS: 76830

== ENCOUNTER 2025-07-07 07:11 | Outpatient (CLI) | payer OTHER, SELFPAY ==
--- OUTSIDE RECORDS SUMMARY | 2024-04-20 05:00 | XMS_ITS ---
Author Organization [facility] Address [address] [facility] [address] [place] [address] Care Team Providers Care Technical Services Specialist Name Role Phone Tio Barroso Unavailable [phone] Migration, Provider Unavailable Unavailable Allergies Allergen (clinical [...] belts Encounters Encounter Location Date Provider Diagnosis [facility] [address] [place] [address] 04/20/2024 Provider Migration Plan Of Treatment No Information Progress Notes * Myriam ULRICHDOB:1990 (35 yo F)Acc No.[id number]:04/20/2024 Patient: Myriam DSOUZA :1990 A ge:33 Y S ex:Female Address:[address] [place] [address], [address] Subjective: * Chief Complaints: * Medical History: *NO SIGNIFICANT GENETIC HISTORY Congenital heart defect 7 [place]: Adopted/ Step Children living in household 1 7 [place]: Sexually active - Yes 7 [place]: Self breast exam- yes 7 [place]: Dairy Product Use - Yes * Licensing 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
--- OUTSIDE RECORDS SUMMARY | 2025-07-07 07:13 | XMS_ITS | Clinical Summary ---
Author Organization [facility] Address [address] [place] [address] Care Team Providers Care Punch Operator Name Role Phone Provider, No Known Primary [...] testing can be done at her local liaison officer's office. If the patient reaches 39 weeks gestation would recommend delivery at that time. If any other complications arise would recommend delivery then. Patient was counseled extensively regarding movement and will contact her liaison officer immediately if she notices any decreased movement. [...] 2 - PCV) 2010 ANNUAL PHYSICAL 04/10/2023 INFLUENZA VACCINE 04/18/2025 TDAP/TD VACCINES (2 - Td or Tdap) 06/18/2028 018 HEPATITIS C SCREENING Completed 08/06/2022 , 08/06/2022, 07/15/2022, Additional history exists Care Teams Punch Operator Relationship Specialty Start Date End Date Provider, No Known [facility] [place] [address] PCP - General 04/10/23
--- OUTSIDE RECORDS SUMMARY | 2025-07-07 07:13 | XMS_ITS | Clinical Summary ---
Author Organization [facility] Address [address] [place] [address] Care Team Providers Care Barrel Painter Name Role Phone Unavailable Primary Care Provider [...]
--- OUTSIDE RECORDS SUMMARY | 2025-07-07 07:13 | XMS_ITS | Patient Health Record ---
[facility] Address [address] [facility] [address] [place] [id number] Care Team Providers Care Sewing Demonstrator Name Role Phone Selena Hodges Primary Care Provider Allergies No Known Allergies Reason For Referral No Information Medications Medication SIG (Take, Route, Frequency, Duration) Notes Start Date End Date Status Vitamins 28-0.8 MG 1 tab(s) orally once a day A ctive Immunizations Vaccine Route Administration Date Status Comme nts Tetanus Tdap-Adacel (over 7yrs) IM Intramuscular 10/21/2016 Administered Tetanus Tdap-Adacel (over 7yrs) Unknown 06/18/2018 Administered Problems Problem Type SNOMED Code ICD Code Onset Dates Problem Status W/U Status Risk Notes Problem Amenorrhea (80829845) Amenorrhea (N91.2) Active confirmed Problem Sciatica (08883054) Acute right-sided low back pain with right-sided sciatica (M54.41) Active confirmed Problem Carpal tunnel syndrome (55142232) Right carpal tunnel syndrome (G56.01) Active confirmed Problem Thyromegaly (0861246) Thyromegaly (E01.0) Active confirmed Problem Ulcer of right foot (disorder) (221406365) Ulcer of right foot, unspecified ulcer stage (L97.519) Active confirmed Plan Of Treatment No Information Insurance Providers Payer Name Payer Address Payer Phone Subscriber Number Group Number Insured Name Patient Relationship to Insured Coverage Start Date Coverage End Date [employer] [address] [place] [address] [id number] Myriam Ulrich Self - patient is the insured [employer] [address] [address] [place] [address] [id number] Myriam Ulrich Self - patient is the insured Medical (General) History Surgical History Surgery Date(Month/Year) surgery to repair pelvic bone november 2019 Hospitalization History Reason Date(Month/Year) [place] [address]
--- OUTSIDE RECORDS SUMMARY | 2025-07-07 07:13 | XMS_ITS | Patient Health Record ---
Author Organization [facility] Address [address] [place] [address] Care Team Providers Care Welder Apprentice Gas Name Role Phone Tio Barroso Unavailable [phone] Allergies Allergen (clinical drug ingredient) Drug/Non Drug [...] SIGNIFICANT GENETIC HISTORY Congenital heart defect 7 [facility]: Adopted/ Step Children living i n household 1 7 [facility]: Sexually active - Yes 7 [facility]: Self breast exam- yes 7 [facility]: Dairy Product Use - Yes Surgical History Surgery Date(Month/Year) Ceasarian section 08/06/22
--- OUTSIDE RECORDS SUMMARY | 2025-07-07 07:14 | XMS_ITS | Clinical Summary ---
Author Organization [facility] Address [address] [place] [address] Phone Care Team Providers Care Core Dropper Name Role Phone Unavailable Primary Care Provider [...] (07/27/2022): Added automatically from request for surgery [id number] Breech presentation, no version 07/25/2022 Overview (07/27/2022): Added automatically from request for surgery [id number] S/P primary low transverse 07/25/2022 Overview (07/27/2022): Added automatically from request for surgery [id number] labor in second trimester without delive ry [...] 1633 ; Surgeon: Cecily Lazar MD; Location: [facility]; Service: Gynecology Medical History Medical [...] Hx Dementia Neg Hx Depression Neg Hx Developmental Disability Neg Hx Diabetes Neg Hx Dislocations Neg [...] Loss Neg Hx Mental Illness Neg Hx Mult Sclerosis Neg Hx Neurofibromatosis [...] Date Smoking Tobacco: Every Day Cigarettes 0.5 14.5 Started: 01/16/2011 Passive Smoke Exposure: Current Smokeless [...] JANIE BABY A Juan rt, Minerva rosenberg, [facility] Delivery Location:[facility] 2017 34w 3d 0h 06m 0h 06m 5 lb 5 oz (2.41 kg) M Vag-S pont Y Livin g 8 9 BRUIN ,SHARON SSA Tobin Figueredo MD Delivery Location:[facility] ([facility] 2021 Term 37w 0d 0h 02m 0h 02m 5 lb 15.8 oz (2.715 kg) F CSP Spinal N Livin g 9 9 SHARON PROCTOR Meredi th H, MD Complications:Breech present ation,History of delivery,Incompetent cervix Delivery Location:[facility] ([facility]) Last Filed Vital Signs Vital [...] 2 - PCV) 2010 HPV/Pap Cotest 2021 Cervical Cancer Screening 01/10/2025 Pap Smear 01/10/2025 01/10/2022, 09/19, 08/20/2012 COVID-19 Vaccine (1 - season) 2025 Influenza Vaccine (#1) 2025 07/26/2010 DTaP/TDaP/Td (7 [...] Procedure Name Priority Date/Time Associated Diagnosis Comments BANK CASHIER CYTOLOGY REQUEST (PAP ONLY) Routine 10/13/2017 1:22 PM EST Well woman exam from Last 3 Months or Most Recently Relevant to Health Maintenance Results * BANK CASHIER CYTOLOGY REQUEST (PAP ONLY) (10/13/2017 1:22 PM EST) CASE REPORT Gynecologic Cytology Report Case: [id number] Authorizing Provider: Cuate Aguirre MD Collected: 10/13/2017 1322 [facility] Re[facility]: 10/13/2017 1322 First Screen: Doug Clemente, TAMMI Rescreen: Calista Camejo, TAMMI Specimen: LIQUID-BASED PAP - CERVICAL/ENDOCERV ICAL, Cervix, Endocervical 10/17/2017 12:10 PM EST [facility] PAP FINAL DIAGNOSIS Negative for intraepithelial lesion or malignancy 10/17/2017 12:10 PM EST [facility] at 1210 EST PAP SMEAR ADEQUACY Satisfactory for evaluation 10/17/2017 12:10 PM EST [facility] ENDOCERVICAL T-ZONE Transformation zone present 10/17/2017 12:10 PM EST [facility] EMBEDDED IMAGES 8 12:10 PM EST [facility] PAP DISCLAIMER The Pap Smear is a screening test that aids in the detection of cervical cancer and cancer precursors. Both false positive and false negative results can occur. The test should be used at regular intervals, and positive results should be confirmed before definitive therapy. Processed using the ThinPrep Log Haul Operator Automated cytology screening device ([employer]). 10/17/2017 12:10 PM EST [facility] PAP OTHER FINDINGS Heavy bacterial background. 10/17/2017 12:10 PM EST [facility] Thin Prep ENDOCERVICAL STRUCTURE / Unknown 10/13/2017 1:22 PM EST 10/13/2017 1:22 PM EST Cuate Aguirre MD CYTOLOGY ORDERABLES Final Re sult [facility] [address] [place] [address] from Last 3 Months or Most Recently Relevant to Health Maintenance Insurance GENERIC WORK[employer] COMP GENER[employer] WORK[employer] COMP GENER[employer] WORK[employer] Advance Directives For more information, please contact: [phone] * Full Code (Latest Code Status on File) Date Activated Date Inactivated Comments 08/06/2022 2:39 PM 08/08/2022 2:55 PM * Full Code Date Activated Date Inactivated Comments 07/16/2022 6:58 PM 07/17/2022 1:50 PM * Full Code Date Activated Date Inactivated Comments 07/31/2018 3:46 AM 08/02/2018 5:41 PM
--- NOTE | 2025-07-07 07:30 | US_ITS ---
PROCEDURE: US TRANSVAGINAL CLINICAL INDICATION: left ovarian cyst COMPARISON: US US TRANSVAGINAL from 05/06/2025 FINDINGS: Transvaginal sonographic images of the pelvis were obtained. UTERUS: 8.9cm x 5.6cmx 4.5cm anteverted with a combined endometrial thickness of 5.4mm. A scar is seen. LEFT OVARY: 3.8 cm x2.0cmx1.8cm with a volume of 7ml. There are number of small follicles in the left ovary. Largest measures 1.1 cm. RIGHT OVARY: 4.6 cmx 3.9 cmx4.1cm with a volume of 39.2ml. Within the right ovary there is a multi-cystic area that measures 4.6 cm by 3.5 cm by 3.7 cm. It encompasses the entire ovary. This could represent a hemorrhagic cyst. Both ovaries are seen. Doppler flow to both ovaries are seen. There is no fluid in the cul-de-sac. IMPRESSION: 1. Anteverted uterus normal in shape and size. The endometrium is thin and measures 5.4 mm. 2. The left ovary is seen and appears normal. The previously described cyst has resolved. The right ovary now contains a 4.6 cm multi cystic area that could represent a hemorrhagic cyst. Suggest a follow-up ultrasound in 8 weeks. 3. No fluid in the cul-de-sac. Dictated by: Jay Fuller MD 07/08/2025 12:12 Jay Fuller MD in OV 07/08/2025 12:12
== END 2025-07-07 23:59 | disposition home or self-care (01) ==
LOC: RAD 07:11
PROVIDERS: PCP Nurse Practitioner; Visit Provider Obstetrics & Gynecology
DX: N85.4 Malposition of uterus (principal); N83.201 Unspecified ovarian cyst, right side; N93.9 Abnormal uterine and vaginal bleeding, unspecified
CPT/HCPCS: 76830

== ENCOUNTER 2025-07-15 10:07 | Outpatient (CLI) | payer OTHER, SELFPAY ==
--- OUTSIDE RECORDS SUMMARY | 2024-04-20 05:00 | XMS_ITS ---
Author Organization [facility] Address [address] [facility] [address] [place] [address] Care Team Providers Care Form Raiser Name Role Phone Tio Barroso Unavailable [phone] Migration, Provider Unavailable Unavailable Allergies Allergen (clinical drug ingredient) Drug/Non Drug Allergy documented on EMR Reaction Allergy Type Onset Date Status Medications: NO KNOWN DRUG ALLERGIES (uncoded) Unspecified Allergy Active Social History Tobacco Use: Social History Observation Description Date Smoking Status WARNING: Information temporarily unavailable Social History Household: Social Info Question Answer Notes Household Marital status: Tobacco Use: Social Info Question Answer Notes Tobacco Control (Standard) Tobacco use: Never 1 09/18/2021 - 11/23/2020 - 11/05/2020 - 07/05/2018 - 06/19/2018 - 05/22/2018 - 03/26/2018 - Additional Details Category Social Info Options Details Miscellaneous: Exercise: Minimal Amoun t of Exercise (Once weekly or less) Travel outside of the [place]: Travel History: Uses seat belts Encounters Encounter Location Date Provider Diagnosis [facility] [address] [place] [address] 04/20/2024 Provider Migration Plan Of Treatment No Information Progress Notes * Myriam ULRICHDOB:1990 (35 yo F)Acc No.[id number]:04/20/2024 Patient: Myriam DSOUZA :1990 A ge:33 Y S ex:Female Address:[address] [place] [address], [address] Subjective: * Chief Complaints: * Medical History: *NO SIGNIFICANT GENETIC HISTORY Congenital heart defect 7 [place]: Adopted/ Step Children living in household 1 7 [place]: Sexually active - Yes 7 [place]: Self breast exam- yes 7 [place]: Dairy Product Use - Yes * 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 * OB History: P regnancy History (GPA) T otal Pregnancies 6 , F ull Term 1 , P remature?2, A B. Induced 0 , A B. Spontaneous 3 , E ctopics 0 , M ultiple Births 0 , L iving 3 . G P G ravida: 6 , P sandra: 3 . P regnancy # 1: C omment :MAB, had D&C [place] :12 Place :[place] PTL :N. P regnancy # 2: B irthDate :03/05/2011 BirthLbs :6 Comment :30# weight gain Weight: 6 DeliveryType :Vaginal Place :[place] PTL :N Sex :M. P regnancy # 3: B irthDate :07/29/2018 DeliveryType :Vaginal [place] :34 PTL :N. P regnancy # 4: B irthDate :08/06/2022 BirthLbs :5 BirthOzs :15 Comment :breech Weight: 5lbs 15.8ozs DeliveryType :C-Sect. [place] :37 Place : e PTL :N. * Surgical History: Ceasarian section 08/06/22 * Family History: F amily History Verified.. *No known family medical history. * Social History: T obacco Use: T obacco Control (Standard) T obacco use: N ever 07/19/2022 - 11/23/2020 - 11/05/2020 - 07/05/2018 - 06/19/2018 - 05/22/2018 - 03/26/2018 -. M iscellaneous: E xercise: Minimal Amount of Exercise (Once weekly or less). Travel outside of the [place]: Travel History: Uses seat belts. H ousehold: H ousehold M arital status: . * Allergies: M edications: NO KNOWN DRUG ALLERGIES: Unspecified - AllergyyesAllergies Verified. * * Date:
[2025-07-15 08:02] VITALS: BMI 17.0
--- OUTSIDE RECORDS SUMMARY | 2025-07-15 10:27 | XMS_ITS | Clinical Summary ---
Author Organization [facility] Address [address] [place] [address] Care Team Providers Care Rn Acute Care Name Role Phone Provider, No Known Primary [...] testing can be done at her local bush hog operator's office. If the patient reaches 39 weeks gestation would recommend delivery at that time. If any other complications arise would recommend delivery then. Patient was counseled extensively regarding movement and will contact her bush hog operator immediately if she notices any decreased movement. [...] 08/06/2022, 07/15/2022, Additional history exists Care Teams Rn Acute Care Relationship Specialty Start Date End Date Provider, No Known [facility] [place] [address] PCP - General 04/10/23
--- OUTSIDE RECORDS SUMMARY | 2025-07-15 10:27 | XMS_ITS | Patient Health Record ---
[facility] [address] [facility] [address] [place] [id number] Care Team Providers Care Reel Winder Name Role Phone Selena Hodges Primary Care [...] Status W/U Status Risk Notes Problem Amenorrhea (03836367) Amenorrhea (N91.2) Active confirmed Problem Sciatica (80751895) Acute right-sided low back pain with right-sided sciatica (M54.41) Active confirmed Problem Carpal tunnel syndrome (02497745) Right carpal tunnel syndrome (G56.01) Active confirmed Problem Thyromegaly (3383280) Thyromegaly (E01.0) Active confirmed Problem Ulcer of right foot (disorder) (597781754) Ulcer of right foot, unspecified ulcer stage (L97.519) Active confirmed Plan Of Treatment No Information Insurance Providers Payer Name Payer Address Payer Phone Subscriber Number Group Number Insured Name Patient Relationship to Insured Coverage Start Date Coverage End Date [employer] [address] [place] [address] [id number] Myriam Ulrich Self - patient is the insured [employer] [address] [address] [place] [address] [id number] Myriam Ulrich Self - patient is the insured Medical (General) History Surgical History Surgery Date(Month/Year) surgery to repair pelvic bone november 2019 Hospitalization History Reason Date(Month/Year) [place] [id number]
--- OUTSIDE RECORDS SUMMARY | 2025-07-15 10:27 | XMS_ITS | Clinical Summary ---
Author Organization [facility] Address [address] [place] [address] Phone Care Team Providers Care Filenet Architect Name Role Phone Unavailable Primary Care Provider [...] (07/27/2022): Added automatically from request for surgery [id number] Breech presentation, no version 07/25/2022 Overview (07/27/2022): Added automatically from request for surgery [id number] S/P primary low transverse 07/25/2022 Overview (07/27/2022): Added automatically from request for surgery [id number] labor in second trimester without delive ry [...] 1633 ; Surgeon: Cecily Lazar MD; Location: [facility]; Service: Gynecology Medical History Medical History [...] JANIE BABY A Juan rt, Minerva rosenberg, [facility] Delivery Location:[facility] 2017 34w 3d 0h 06m 0h 06m 5 lb 5 oz (2.41 kg) M Vag-S pont Y Livin g 8 9 BRUIN ,SHARON SSA Tobin Figueredo MD Delivery Location:[facility] ([facility]) 2021 Term 37w 0d 0h 02m 0h 02m 5 lb 15.8 oz (2.715 kg) F CSP Spinal N Livin g 9 9 SHARON PROCTOR Meredi th H, MD Complications:Breech present ation,History of delivery,Incompetent cervix Delivery Location:[facility] ([facility]) Last Filed Vital Signs Vital Sign [...] Procedure Name Priority Date/Time Associated Diagnosis Comments RETAIL PARTS PRO CYTOLOGY REQUEST (PAP ONLY) Routine 10/13/2017 1:22 PM EST Well woman exam from Last 3 Months or Most Recently Relevant to Health Maintenance Results * RETAIL PARTS PRO CYTOLOGY REQUEST (PAP ONLY) (10/13/2017 1:22 PM EST) CASE REPORT Gynecologic Cytology Report Case: [id number] Authorizing Provider: Cuate Aguirre MD Collected: 10/13/2017 1322 [facility] Re[facility]: 10/13/2017 1322 First Screen: Doug Clemente, TAMMI Rescreen: Calista Camejo, TAMMI Specimen: LIQUID-BASED PAP - CERVICAL/ENDOCERV ICAL, Cervix, Endocervical 10/17/2017 12:10 PM EST [facility] PAP FINAL DIAGNOSIS Negative for intraepithelial lesion or malignancy 10/17/2017 12:10 PM EST [facility] at 1210 EST PAP SMEAR ADEQUACY Satisfactory for evaluation 10/17/2017 12:10 PM EST [facility] ENDOCERVICAL T-ZONE Transformation zone present 10/17/2017 12:10 PM EST [facility] EMBEDDED IMAGES 8 12:10 PM EST [facility] PAP DISCLAIMER The Pap Smear is a screening test that aids in the detection of cervical cancer and cancer precursors. Both false positive and false negative results can occur. The test should be used at regular intervals, and positive results should be confirmed before definitive therapy. Processed using the ThinPrep Personal Development Mentor Automated cytology screening device ([employer]). 10/17/2017 12:10 PM EST [facility] PAP OTHER FINDINGS Heavy bacterial background. 10/17/2017 12:10 PM EST [facility] Thin Prep ENDOCERVICAL STRUCTURE / Unknown 10/13/2017 1:22 PM EST 10/13/2017 1:22 PM EST Cuate Aguirre MD CYTOLOGY ORDERABLES Final Re sult [facility] [address] [place] [address] from Last 3 Months or Most Recently Relevant to Health Maintenance Insurance GENERIC WORKERS' COMP GENER[employer] WORKERS[employer] COMP GENERIC WORKERS[employer] COMP Advance Directives For more information, please contact: [phone] * Full Code (Latest Code Status on File) Date Activated Date Inactivated Comments 08/06/2022 2:39 PM 08/08/2022 2:55 PM * Full Code Date Activated Date Inactivated Comments 07/16/2022 6:58 PM 07/17/2022 1:50 PM * Full Code Date Activated Date Inactivated Comments 07/31/2018 3:46 AM 08/02/2018 5:41 PM
--- OUTSIDE RECORDS SUMMARY | 2025-07-15 10:27 | XMS_ITS | Patient Health Record ---
Author Organization [facility] Address [address] [place] [address] Care Team Providers Care Railroad Car Cleaner Name Role Phone Tio Barroso Unavailable [phone] Allergies Allergen (clinical drug ingredient) Drug/Non Drug [...] SIGNIFICANT GENETIC HISTORY Congenital heart defect 7 [place]: Adopted/ Step Children living i n household 1 7 [place]: Sexually active - Yes 7 [place]: Self breast exam- yes 7 [place]: Dairy Product Use - Yes Surgical History Surgery Date(Month/Year) Rudysarian section 08/06/22
--- OUTSIDE RECORDS SUMMARY | 2025-07-15 10:27 | XMS_ITS | Clinical Summary ---
Author Organization [facility] Address [address] [place] [address] Care Team Providers Care Rock Splitter Name Role Phone Unavailable Primary Care Provider [...]
[2025-07-15 10:39] LABS: Hematocrit 38.7 % (37.0-47.0); Hemoglobin 13.1 g/dL (12.2-16.2); Immature Granulocytes % 0.2 %; Mean Corpuscular HGB Conc 33.9 g/dL (31.8-35.4); Mean Corpuscular Hemoglobin 33.0 pg (27.0-31.2); Mean Corpuscular Volume 97.5 fl (81-99); Nucleated Red Blood Cells % 0 %; Platelet Count 192 K/mm3 (142-424); Red Blood Count 3.97 M/mm3 (4.20-5.40); Red Cell Distribution Width-SD 45.8 fL; White Blood Count 6.4 K/mm3 (4.8-10.8)
[2025-07-15 10:52] LABS: Albumin Level 3.5 g/dl (3.5-5.0); Chloride 105 mmol/L (98-107); Potassium 4.0 mmoL/L (3.5-5.1); Sodium 136 mmol/L (136-145)
[2025-07-15 10:55] LABS: Alanine Aminotransferase 14 U/L (12-78); Albumin/Globulin Ratio 1.0 (1.1-1.8); Alkaline Phosphatase 59 U/L (38-126); Anion Gap 8.0 mEq/L (5-15); Aspartate Amino Transferase 26 U/L (14-36); Bilirubin,Total 0.3 mg/dl (0.2-1.3); Blood Urea Nitrogen 10 mg/dl (7-17); Calcium 8.5 mg/dl (8.4-10.2); Carbon Dioxide 27 mmol/L (22.0-30.0); Creatinine Clearance Estimated 64 mL/min (50-200); Creatinine,Serum 1.00 mg/dl (0.52-1.04); Estimated Glomerular Filt Rate 63 ml/min (>60); GFR (African American) 77 ML/MIN (>60); Globulin 3.6 g/dL (1.3-3.2); Glucose 98 mg/dl (74-100); Total Protein,Serum 7.1 g/dl (6.3-8.2)
[2025-07-15 11:45] LABS: HCG Qualitative, Serum Negative (Negative)
== END 2025-07-15 23:59 | disposition home or self-care (01) ==
LOC: PREOP 10:08
PROVIDERS: PCP Nurse Practitioner; Visit Provider Obstetrics & Gynecology
DX: Z01.812 Encounter for preprocedural laboratory examination (principal)
CPT/HCPCS: 80053; 84703; 85025

== ENCOUNTER 2025-07-21 06:00 | Day surgery (SDC) | payer OTHER, SELFPAY ==
[2025-07-15 13:27] VITALS: BMI 17.0
[2025-07-21] VITALS (10 sets, daily range): BP systolic 98–128; BP diastolic 59–68; PULSE 59–100; RESP 16–18; TEMP 36.4–37; O2SAT 95–100; BMI 17.0
[2025-07-21] MEDS: ACETAMINOPHEN 500MG TAB 1000 MG PO (06:41)
[2025-07-21] MEDS: LACTATED RINGERS 1000ML 1,000 ML 25 ML IV (06:41)
--- NOTE | 2025-07-21 08:06 | P.PNANES_ITS ---
[facility] Disclaimer: The information contained in this section may have been updated after the patient was seen, as this information can be updated by other users. 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 Breast pain, right Costochondritis Onset (spontaneous) of labor after 37 completed weeks of gestation but before 39 completed weeks gestation, with delivery by (planned) section Request for sterilization Rh negative status during Nausea and vomiting in Tobacco use affecting , antepartum Tobacco abuse Vaginal trauma Surgical History Hx of bilateral salpingectomy with RLTCS on 07/25/23 Hx of section Family History Other Family history of diabetes mellitus Family history of melanoma Social History (Updated 07/21/25 @ 06:25 by Gloria Wylie RN) Smoking Status: Current every day smoker tobacco type: cigarettes packs per day: 1 second hand exposure: No alcohol intake: never substance use type: denies use current occupational status: unemployed Travel in the last 8 weeks?: None household members: spouse and children do you feel safe at home: Yes victim of physical abuse: No victim of emotional abuse: No victim of sexual abuse: No would you like helpful sources: No Have you lived/traveled outside US in past 30 days?: No Contact w/someone who lives/traveled outside US past 30 days?: No Exposure to someone with infectious disease in past 14 days?: No Do you have a fever (greater than 100.4 F or 38 C)?: No Have you tested positive for COVID-19?: No Exposed to someone with COVID-19 in past 14 days?: No Do you have a sore throat?: No Do you have a cough?: No Do you have any weakness?: No Are you experiencing any nausea/vomitting?: No Do you have any diarrhea?: No Are you experiencing any unusual bleeding?: No Do you have any muscle aches/pain?: No Do you have any abdominal pain?: No Are you experiencing loss of taste or smell?: No [facility] Anesthesia Checklist Patient Identification Patient Identification: Verbal (Name & ) Structural Data Admitted From: Home Planned Operative Procedure/s: d/c hyst Consent for Planned Operative Procedure(s) Verified: Yes NPO Status Verified Time NPO: 00:00 Additional verifications Anesthesia Reactions: No Airway Assessment Mallampati Score:: Class II C-Spine Mobility Assessed: Yes TMJ Mobility Assessed: Yes Dentition: Good Dentition Neurological Assessment Level of Consciousness: Awake, Alert and Appropriate Anesthesia Plan Anesthesia Risk discussed: Yes Anesthesia Plan: Verified ASA Class: I Anesthesia Type: General
--- NOTE | 2025-07-21 08:19 | P.PNANES_ITS ---
[facility] Anesthesia Record Part I Anesthesia Record I Intake, IV Amount: 1,000 Hydration: Adequate Estimated blood loss (mL): 0 Urine output (mL): 300 Blood Pressure: 128/60 SaO2: 95 Pulse Rate: 100 Airway Patency: Patent Respiratory Rate: 16 Temperature: 97.5 F Patient is:: Awake and Stable Stable to PACU at:: 08:15
--- NOTE | 2025-07-21 08:22 | P.OP_ITS ---
Date of procedure: 07/21/25 Pre-op Diagnosis:: 1. Abnormal uterine bleeding Post-op Diagnosis:: 1. Abnormal uterine bleeding Procedure performed:: 1. Hysteroscopy, dilation and curettage 2. Novasure endometrial ablation Surgeon:: Aura León DO Confidential Investigator(s):: N/a ORACLE ARCHITECT:: Lane Esquivel Anesthesia: GETA Estimated blood loss (mL): 5 Clinical Note:: Mrs Myriam Ulrich is a 35 yo [id number] who presents to [facility] for scheduled procedure. Periods have been irregular and twice a month for the past 6 months. She reports 7 day period followed by a few days of no bleeding and then heavy bleeding for 3-4 days. She admits she did not do well with hormones in the past. Her bleeding actually got worse with hormones. History of bilateral salpingectomy. History of x 2. Pelvic ultrasound 05/06/25 demonstrated retroverted uterus normal in shape and size. The endometrium is thin and within the endometrium at the fundus there is trace fluid. 2. The right ovary is seen and appears normal. There is a 1.9 cm follicle within the right ovary. 3. The left ovary contains what appears to be a hemorrhagic cyst measuring 3.3 cm and a follicle measuring 2.7 cm. 4. There is a small amount of fluid within the cul-de-sac. Repeat pelvic ultrasound 07/07/25 demonstrated anteverted uterus normal in shape and size. The endometrium is thin and measures 5.4 mm. 2. The left ovary is seen and appears normal. The previously described cyst has resolved. The right ovary now contains a 4.6 cm multi cystic area that could represent a hemorrhagic cyst. Suggest a follow-up ultrasound in 8 weeks. Operative findings:: 1. On bimanual exam, cervix appeared grossly normal, uterus is retroverted, normal size and shape. No adnexal masses palpated 2. On laparoscopic exam, bilateral tubal ostia easily visualized. Grossly normal appearing thin endometrium. No masses or polyps Operative note:: Risks, benefits and alternatives were discussed with the patient. Risks include but are not limited to bleeding, infection, uterine perforation and VTE. Patient voiced understanding and agreed to proceed. She was wheeled back to the [facility] room and placed under general anesthesia without difficulty. She was placed in dorsal lithotomy position and prepped and draped in the normal sterile fashion. Straight catheter was used to drain the bladder. A bimanual exam was performed. A weighted Auvard was placed in the vaginal vault. Single tooth tenaculum was placed on anterior lip of the cervix. Uterus sounded to 8. Sequential Smooth dilators were used to dilate the cervical os. Hysteroscope was tested inserted through the cervix without difficulty. Endometrial cavity was evaluated. See findings above. Pictures were taken. Hysteroscope was removed. Medium size sharp curette was inserted through the cervix into the uterine cavity. The endometrial cavity was curetted with a systematic [id number] movement of the curette so that all possible endometrium was sampled. Endometrial curettings will be sent to pathology for review. Novasure sure sound was used to obtain uterine length. Uterus measured 4.5 cm in length and 4.0cm in cavity width. Novasure deviced was inserted and ablation was performed per protocol for 84 seconds. Novasure device was removed. Hysteroscope was reinserted and cavity revealed adequate burn and no uterine perforation. Hysteroscope was removed. Instruments were removed from the vagina. Tenaculum site was noted to be oozing. 3-0 Chromic suture was use to ligate tenaculum sites. Hemostasis noted. Patient was awaken from anesthesia without difficulty. She was transported to recovery room in stable condition. Patient will be discharged home when awake and ambulating. She was given postop instructions as well as instructions to follow-up in the office in 2 weeks at which time pathology will be reviewed. Condition: stable Disposition: same day Specimens:: 1. Endometrial curettings Complications:: None
--- NOTE | 2025-07-21 09:55 | EXP.ANES.II ---
[facility] Anesthesia Record Part II Anesthesia Record Part II Discharge Time: 09:16 Destination: Surgical Day Care (OP Surgery) PACU nurse assessment reviewed?: Yes Patient Condition:: Good Anesthesia Complications:: None Swallowing reflex intact?: Yes Airway Patency: Patent Cyanosis?: No Blood Pressure: 102/65 SaO2: 100 Respiratory Rate: 18 Pulse Rate: 71 Temperature: 97.9 F Mental Status: Alert & Oriented Pain level:: 0 Nausea and/or vomitting:: None Intake, IV Amount: 0 Hydration: Adequate
== END 2025-07-21 09:22 | disposition home or self-care (01) ==
PROVIDERS: PCP Nurse Practitioner; Visit Provider Obstetrics & Gynecology
PROC: (CPT 58558; principal; 2025-07-21 07:30)
DX: N92.0 Excessive and frequent menstruation with regular cycle (principal); Z90.79 Acquired absence of other genital organ(s)
CPT/HCPCS: 58563; J1100; J1885; J2003; J2250; J2405; J2704; J3010; J7120

== ENCOUNTER 2025-09-17 10:47 | Outpatient (CLI) | payer OTHER, SELFPAY ==
--- OUTSIDE RECORDS SUMMARY | 2025-09-17 10:49 | XMS_ITS | Clinical Summary ---
Author Organization [facility] Address [address] [place] [address] Care Team Providers Care Chimney Repairer Name Role Phone Provider, No Known Primary [...] testing can be done at her local rubber compounder mixer's office. If the patient reaches 39 weeks gestation would recommend delivery at that time. If any other complications arise would recommend delivery then. Patient was counseled extensively regarding movement and will contact her rubber compounder mixer immediately if she notices any decreased movement. [...] 08/06/2022, 07/15/2022, Additional history exists Care Teams Chimney Repairer Relationship Specialty Start Date End Date Provider, No Known [place] [address] PCP - General 04/10/23
--- OUTSIDE RECORDS SUMMARY | 2025-09-17 10:49 | XMS_ITS | Clinical Summary ---
Author Organization [facility] Address [address] [place] [address] Care Team Providers Care Certified Nursing Attendant Name Role Phone Unavailable Primary Care Provider [...]
--- OUTSIDE RECORDS SUMMARY | 2025-09-17 10:50 | XMS_ITS | Clinical Summary ---
Author Organization [facility] Address [address] [place] [address] Phone Care Team Providers Care Housing And Residence Life Director Name Role Phone Unavailable Primary Care [...] (07/27/2022): Added automatically from request for surgery [id number] Breech presentation, no version 07/25/2022 Overview (07/27/2022): Added automatically from request for surgery [id number] S/P primary low transverse 07/25/2022 Overview (07/27/2022): Added automatically from request for surgery [id number] labor in second trimester without delive ry [...] 1633 ; Surgeon: Cecily Lazar MD; Location: [facility]; Service: Gynecology Medical History Medical History [...] Date Smoking Tobacco: Every Day Cigarettes 0.5 14.7 Started: 01/16/2011 Passive Smoke Exposure: Current Smokeless [...] JANIE BABY A Juan rt, Minerva rosenberg, [facility] Delivery Location:[facility] 2017 34w 3d 0h 06m 0h 06m 5 lb 5 oz (2.41 kg) M Vag-S pont Y Livin g 8 9 BRUIN ,SHARON SSA Tobin Figueredo MD Delivery Location:[facility] ([facility] 2021 Term 37w 0d 0h 02m 0h 02m 5 lb 15.8 oz (2.715 kg) F CSP Spinal N Livin g 9 9 SHARON PROCTOR Meredi th H, MD Complications:Breech present ation,History of delivery,Incompetent cervix Delivery Location:[facility] ([facility]) Last Filed Vital Signs Vital Sign [...] Procedure Name Priority Date/Time Associated Diagnosis Comments AQUA AMMONIA OPERATOR CYTOLOGY REQUEST (PAP ONLY) Routine 10/13/2017 1:22 PM EST Well woman exam from Last 3 Months or Most Recently Relevant to Health Maintenance Results * AQUA AMMONIA OPERATOR CYTOLOGY REQUEST (PAP ONLY) (10/13/2017 1:22 PM EST) CASE REPORT Gynecologic Cytology Report Case: [id number] Authorizing Provider: Cuate Aguirre MD Collected: 10/13/2017 1322 [facility]: 10/13/2017 1322 First Screen: Doug Clemente, TAMMI Rescreen: Calista Camejo, TAMMI Specimen: LIQUID-BASED PAP - CERVICAL/ENDOCERV ICAL, Cervix, Endocervical 10/17/2017 12:10 PM EST [facility] PAP FINAL DIAGNOSIS Negative for intraepithelial lesion or malignancy 10/17/2017 12:10 PM EST [facility] at 1210 EST PAP SMEAR ADEQUACY Satisfactory for evaluation 10/17/2017 12:10 PM EST [facility] ENDOCERVICAL T-ZONE Transformation zone present 10/17/2017 12:10 PM EST [facility] EMBEDDED IMAGES 8 12:10 PM EST [facility] PAP DISCLAIMER The Pap Smear is a screening test that aids in the detection of cervical cancer and cancer precursors. Both false positive and false negative results can occur. The test should be used at regular intervals, and positive results should be confirmed before definitive therapy. Processed using the ThinPrep Mushroom Packer Automated cytology screening device ([employer]ompium). 10/17/2017 12:10 PM EST [facility] PAP OTHER FINDINGS Heavy bacterial background. 10/17/2017 12:10 PM EST [facility] Thin Prep ENDOCERVICAL STRUCTURE / Unknown 10/13/2017 1:22 PM EST 10/13/2017 1:22 PM EST Cuate Aguirre MD CYTOLOGY ORDERABLES Final Re sult [facility] [address] [place] [address] from Last 3 Months or Most Recently Relevant to Health Maintenance Insurance [employer] Advance Directives For more information, please contact: [phone] * Full Code (Latest Code Status on File) Date Activated Date Inactivated Comments 08/06/2022 2:39 PM 08/08/2022 2:55 PM * Full Code Date Activated Date Inactivated Comments 07/16/2022 6:58 PM 07/17/2022 1:50 PM * Full Code Date Activated Date Inactivated Comments 07/31/2018 3:46 AM 08/02/2018 5:41 PM
--- NOTE | 2025-09-17 11:00 | US_ITS ---
PROCEDURE: US TRANSVAGINAL CLINICAL INDICATION: 8 week follow up COMPARISON: US US TRANSVAGINAL from 05/06/2025 US US TRANSVAGINAL from 07/07/2025 FINDINGS: Transvaginal sonographic images of the pelvis were obtained. UTERUS: 8.1cm x 5.4cmx 3.6 cm anteverted with a combined endometrial thickness of 6.8mm. A scar is seen. There is a small amount of fluid within the endometrium. LEFT OVARY: 2.3cmx1.9 cmx1.1cm with a volume of 2.4ml. There are several small follicles in the left ovary. RIGHT OVARY: 3.3cmx 2.2cmx1.7 cm with a volume of 6.5ml. There are several small follicles in the right ovary The previously described hemorrhagic cyst has now resolved. Both ovaries are seen and appear normal. Doppler flow to both ovaries are seen. There is no fluid in the cul-de-sac. IMPRESSION: 1. Anteverted uterus normal in shape and size. The endometrium is thin. There is a small amount of fluid within the endometrial canal. 2. Both ovaries are seen and appear normal. They have numerous small follicles. The previously described right hemorrhagic ovarian cyst has now completely resolved. 3. No fluid in the cul-de-sac. Dictated by: Jay Fuller MD 09/18/2025 07:15 Jay Fuller MD in OV 09/18/2025 07:15
== END 2025-09-17 23:59 | disposition home or self-care (01) ==
LOC: RAD 10:48
PROVIDERS: PCP Nurse Practitioner; Visit Provider Obstetrics & Gynecology
DX: N83.02 Follicular cyst of left ovary (principal); N83.01 Follicular cyst of right ovary; N85.4 Malposition of uterus; R93.89 Abnormal findings on diagnostic imaging of other specified body structures
CPT/HCPCS: 76830